=== PATIENT | female | born 1955 | race American Indian/Alaskan Native ===

== ENCOUNTER 2020-06-15 15:00 | Emergency (ER) | payer MEDICARE, MEDICAID, OTHER ==
[~2020-06-15] VITALS: Ht 157.5 cm; Wt 68.0 kg
--- OUTSIDE RECORDS SUMMARY | ~2020-06-15 | XMS | Encounter Summary ---
Demographics + + + | Address | [address] | | | [place] [address] | + + + | Home Phone | | + + + | Preferred Language | Unknown | + + + | Marital Status | Single | + + + | Denominational Affiliation | CAT | + + + | Race | White | + + + | Ethnic Group | Not or | + + + Author + + + | Organization | Unknown | + + + | Address | Unknown | + + + | Phone | Unavailable | + + + Support + + +---------+ + | Name | Relationship | Address | Phone | + + +---------+ + | Richard Berrios | ECON | Unknown | | + + +---------+ + Care Team Providers + +------+ + | Care Leather Shaver Name | Role | Phone | + +------+ + PCP | Unavailable | + +------+ + Encounter Details +--------+ + + + + | Date | Type | Department | Care Team | Description | +--------+ + + + + | 12/08/ | Transcribed | | Dictation, Other | Transcribed | | 2002 | | | | | +--------+ + + + + Social History + +-------+ +--------+------+ | Tobacco Use | Types | Packs/Day | Years | Date | | | | | Used | | + +-------+ +--------+------+ | Never Assessed | | | | | + +-------+ +--------+------+ + + + | Sex Assigned at | Date Recorded | | | | + + + | Not on file | | + + + documented as of this encounter Progress Notes Interface, Hospital Internship In - 05/24/2006 3:[address] [address] or December 08, 2001 Derrick Serrano M.D. [facility] [address] [place] [address] RE: LORENA BERRIOS MR #: [id number] Dear Dr. Serrano: It is a pleasure to see Lorena Berrios in the Neurosurgery Clinic today. As you are well aware, this 46-year-old woman comes in with a chief complaint of severe back pain and bilateral leg aching pain. The patient's problem started insidiously many years ago. She dates it back to approximately 1996. Ever since that time, she has had aching to sharp back pain, severe muscle spasm, and limited range of motion. In the more recent years, she has noted pain that goes into the buttocks bilaterally down the legs to the knees. It did not go below the knee. The pain in the back is made worse by any movement, and it really never gets better. The pain in the legs is exacerbated by standing and walking, and if she changes position, it gets slightly better but then will start getting to be bad. She has no weakness, no numbness, and no bowel or bladder problems. She has previously been treated with some physical therapy. She also has had some medications at various times for this. She has recently had an MRI, and we were asked to evaluate her for surgical intervention. Past medical history is significant for cholecystectomy and section. She also has high blood pressure and diabetes. She has had some abdominal pain and some migraine headaches. The family history is positive for cancer, diabetes, heart disease, high blood pressure, mental illness, tuberculosis, arthritis, and migraine headaches. Social history, she is a housewife, she smokes, and she does not drink. SHE IS ALLERGIC TO CODEINE, HYDROCODONE, MORPHINE, AND CELEBREX. She takes ( ), lisinopril, ( ), ( ), lovastatin, citalopram, doxepin, diazepam, and Neurontin. Her review of system shows high blood pressure. No angina or other problems. She has abdominal pain. She has no asthma, shortness of breath, emphysema, cancer, skin disease, anemia, renal failure, strokes, blackouts, epilepsy, or major problem with her back. On examination, she was a very pleasant woman who gave a concise history, and cooperative fully with the examination. She did appear to be in pain. She was extremely well nourished and somewhat overweight. Her blood pressure 142/80, pulse of 100, and respiratory rate of 12. Her gait appeared normal but slow. Her cerebellar testing, upper and lower extremities, were normal. Musculoskeletal examination revealed some limited range of motion of the spine particularly in extension. Diffuse tenderness and paraspinal spasm. Severe tenderness in the subtrochanteric areas bilaterally. Manipulation of the hip produce subtrochanteric pain. No anterior thigh pain. No straight leg raising or reverse straight leg raising. She had diffuse tenderness of the tensor fascia greg areas also. Pulses were diminished in the lower extremities. Motor strength in the upper and lower extremities 5-/5 with normal tone. Sensory examination was normal for pinprick and position sense. The reflexes are +1 and symmetrical in the biceps, triceps, and knees jerks, absent ankle jerks, and the toes are downgoing. I reviewed an MRI scan that was performed this year. This shows some stenosis at the L3-L4, L4-L5, and L5-S1 levels. This patient has 2 basic problems; first, severe back pain that has been there for many many years and probably some neurogenic claudication in the lower extremities. Although because of the severe subtrochanteric bursitis, it is very hard to tell the two apart. At this point, given her primary problem with her back pain, I do not think any surgical intervention will help her. At this point, before one would consider any surgery she needs aggressive physical therapy, she needs significant weight loss, she needs to be treated with anti-inflammatories, and injections in the subtrochanteric area may help. I think before anyone would entertain any surgical intervention one would also try to do epidural steroids on her to see if this is helpful. I appreciate the chance to see your patient. Thank you for sending her here. Yours sincerely, Roddy Sanches M.D. [facility] / [id number] / [id number] / [id number] / [id number] signed by Interface, Hospital Internship In at 05/24/2006 3:12 AM PDTdoc umented in this encounter Plan of Treatment Not on filedocumented as of this encounter Visit Diagnoses Not on filedocumented in this encounter"
--- OUTSIDE RECORDS SUMMARY | ~2020-06-15 | XMS | Encounter Summary ---
Demographics + + + | Address | [address] | | | [place] [address] | + + + | Home Phone | | + + + | Preferred Language | Unknown | + + + | Marital Status | Single | + + + | Sabianism Affiliation | CAT | + + + | Race | White | + + + | Ethnic Group | Not or | + + + Author + + + | Author | [facility] | + + + | Organization | [facility] | + + + | Address | Unknown | + + + | Phone | Unavailable | + + + Support + + +---------+ + | Name | Relationship | Address | Phone | + + +---------+ + | Richard Hall | ECON | Unknown | | + + +---------+ + Care Team Providers + +------+ + | Care Dietetics Teacher Name | Role | Phone | + +------+ + PCP | Unavailable | + +------+ + Encounter Details +--------+ + + + + | Date | Type | Department | Care Team | Description | +--------+ + + + + | 07/12/ | DELETED | Preoperative | Consult, | ANESTHESIA/SEDATION | | 2003 | TRANSCRIPTI | Medicine Clinic at | Anesthesia [address] | | | | ON | [facility] 4th Floor [address] [facility] | | | | | [address] [place], [place] | | | | | Mailcode: [facility] | [id number] | | | | | [facility] | | | | | | and Healing, | | | | | | Building [address]4th Floor | | | | | | [place], [place] | | | | | | [address] | | | | | | [phone] | | | +--------+ + + + [...] + + documented as of this encounter Plan of Treatment Not on filedocumented as of this encounter Procedures + +--------+ + + + | Procedure Name | Priori | Date/Time | Associated Diagnosis | Comments | | | ty | | | | + +--------+ + + + | ANESTHESIA/SEDATION | | 07/12/2004 | | Results for this | | | | 8:45 AM | | procedure are in the | | | | PDT | | results section. | + +--------+ + + + documented in this encounter Visit Diagnoses Not on filedocumented in this encounter"
--- OUTSIDE RECORDS SUMMARY | ~2020-06-15 | XMS | Encounter Summary ---
Demographics + + + | Address | [address] | | | [place] [address] | + + + | Home Phone | | + + + | Preferred Language | Unknown | + + + | Marital Status | Single | + + + | Muslim Affiliation | CAT | + + + | Race | White | + + + | Ethnic Group | Not or | + + + Author + + + | Author | [facility] | + + + | Organization | [facility] | + + + | Address | Unknown | + + + | Phone | Unavailable | + + + Support + + +---------+ + | Name | Relationship | Address | Phone | + + +---------+ + | Richard Hall | ECON | Unknown | | + + +---------+ + Care Team Providers + +------+ + | Care Top Carrier Name | Role | Phone | + +------+ + PCP | Unavailable | + +------+ + Reason for Visit +--------+--------+ + | Reason | Onset | Comments | | | Date | | +--------+--------+ + | Other | 04/07/ | chart update | | | 2015 | | +--------+--------+ + Encounter Details +--------+ + + + + | Date | Type | Department | Care Team | Description | +--------+ + + + + | 04/07/ | Telephone | [facility] | Bhavani Julian MD | Other (chart update) | | 2015 | | Medical Clinic | [address] | | | | | Internal Medicine | [place] | | | | | [address] | [address] | | | | | [place], [place] | [phone] | | | | | [address] | | | | | | [phone] | | | +--------+ + + + [...]
--- OUTSIDE RECORDS SUMMARY | ~2020-06-15 | XMS | Encounter Summary ---
Demographics + + + | Address | [address] | | | [place] [address] | + + + | Home Phone | | + + + | Preferred Language | Unknown | + + + | Marital Status | Single | + + + | Nondenominational Affiliation | CAT | + + + [...] Team Providers + +------+ + | Care Silver Plater Name | Role | Phone | + +------+ + PCP | Unavailable | + +------+ + Encounter Details +--------+ + + + + | Date | Type | Department | Care Team | Description | +--------+ + + + + | 07/11/ | Orders Only | | Record, Operation | | | 2004 | | | | | +--------+ + [...] + + documented as of this encounter Procedure Notes Interface, Occupational Therapy Teacher In - 09/02/2005 7:32 PM [facility] [id number] YASH Guevara Date: 07/11/2004 Attending Surgeon: Geraldine Holt M.D., Ph.D. Training Program Assistant(s): Israel Roberson M.D. Theodore Brandon M.D. Preoperative Diagnosis(es): Lumbar stenosis. Postoperative Diagnosis(es): Lumbar stenosis. Procedures Performed: 1. L4-5 laminectomy with bilateral foraminotomies. 2. Intraoperative fluoroscopy with interpretation approximately 10 seconds. Anesthesia: General endotracheal anesthesia plus local anesthetics. Complications: None. Specimens: None. Indications: The patient is a 49-year-old female with history of back and buttock pain who has now new progressive right lower extremity pain and claudication. MRI shows severe lumbar stenosis at L4-5, especially in the lateral recesses and foramen, due to ligamentous hypertrophy and circumferential lumbar disk bulge. Findings: L4-5 laminectomy was performed with bilateral foraminotomies. Good decompression of the nerve roots and lateral recesses were performed. Procedure: The patient was brought to the Operating Room. General endotracheal anesthesia was induced. The patient was rolled into prone position on a Naveen table. Fluoroscopy was brought in, and the level of L4-5 was localized. Back was prepped and draped in sterile fashion. A midline incision was made and carried down in the midline, and the L4-5 spinous processes and laminae were exposed. Fluoroscopy again confirmed that these indeed were the right levels, so a high-speed drill was used to the cut the lamina on either side, and then these were removed with a rongeur. Once this was done, the laminae were removed, and then the lateral recess and foramen were decompressed with the Kerrison punch. [place] tool was used to make sure that decompression was adequately good. The nerve roots were loose along the lateral recess and foramen bilaterally. The wound was copiously irrigated, and the fascia was closed with 0 interrupted Vicryl; 3-0 interrupted Vicryl was used for subcutaneous layer; and a running 4-0 Rapide was used for skin. Bacitracin and sterile dressings were placed. The patient was brought back into supine position, awakened, extubated, and taken to the Recovery Room in good condition. Israel Roberson M.D. Gearldine Holt M.D., Ph.D. / [id number] / [id number] / [id number] / [id number] documented i n this encounter Plan of Treatment Not on filedocumented as of this encounter Procedures + +--------+ + + + | Procedure Name | Priori | Date/Time | Associated Diagnosis | Comments | | | ty | | | | + +--------+ + + + | OPERATION RECORD | | 07/11/2004 | | Results for this | | | | | | procedure are in the | | | | | | results section. | + +--------+ + + + documented in this encounter Results OPERATION RECORD (07/11/2004) + + | Transcriptions | + + | Interface, Occupational Therapy Teacher In - 09/02/2005 7:32 PM PST | | [id number] | | [id number] YASH Guevara | | | | Date: 07/11/2004 | | | | Attending Surgeon: Geraldine Holt M.D., Ph.D. | | | | Training Program Assistant(s): Israel Roberson M.D. | | Theodore Brandon M.D. | | | | Preoperative Diagnosis(es): | | Lumbar stenosis. | | | | Postoperative Diagnosis(es): | | Lumbar stenosis. | | | | Procedures Performed: | | 1. L4-5 laminectomy with bilateral foraminotomies. | | 2. Intraoperative fluoroscopy with interpretation approximately 10 | | seconds. | | | | | | Anesthesia: | | General endotracheal anesthesia plus local anesthetics. | | | | Complications: | | None. | | | | Specimens: | | None. | | | | Indications: | | The patient is a 49-year-old female with history of back and buttock pain | | who has now new progressive right lower extremity pain and claudication. | | MRI shows severe lumbar stenosis at L4-5, especially in the lateral | | recesses and foramen, due to ligamentous hypertrophy and circumferential | | lumbar disk bulge. | | | | Findings: | | L4-5 laminectomy was performed with bilateral foraminotomies. Good | | decompression of the nerve roots and lateral recesses were performed. | | | | Procedure: | | The patient was brought to the Operating Room. General endotracheal | | anesthesia was induced. The patient was rolled into prone position on a | | Naveen table. Fluoroscopy was brought in, and the level of L4-5 was | | localized. Back was prepped and draped in sterile fashion. A midline | | incision was made and carried down in the midline, and the L4-5 spinous | | processes and laminae were exposed. Fluoroscopy again confirmed that these | | indeed were the right levels, so a high-speed drill was used to the cut the | | lamina on either side, and then these were removed with a rongeur. Once | | this was done, the laminae were removed, and then the lateral recess and | | foramen were decompressed with the Kerrison punch. [place] tool was used | | to make sure that decompression was adequately good. The nerve roots were | | loose along the lateral recess and foramen bilaterally. The wound was | | copiously irrigated, and the fascia was closed with 0 interrupted Vicryl; | | 3-0 interrupted Vicryl was used for subcutaneous layer; and a running 4-0 | | Rapide was used for skin. Bacitracin and sterile dressings were placed. | | The patient was brought back into supine position, awakened, extubated, and | | taken to the Recovery Room in good condition. | | | | | | | | | | Israel Roberson M.D. | | | | | | | | Geraldine Holt M.D., Ph.D. | | | | / | | [id number] / [id number] / [id number] / [id number] | | | | | + + documented in this encounter Visit Diagnoses Not on filedocumented in this encounter"
--- OUTSIDE RECORDS SUMMARY | ~2020-06-15 | XMS | Encounter Summary ---
Demographics + + + | Address | [address] | | | [place] [address] | + + + | Home Phone | | + + + | Preferred Language | Unknown | + + + | Marital Status | Single | + + + | Presybeterian Affiliation | CAT | + + + | Race | White | + + + | Ethnic Group | Not or | + + + Author + + + | Author | [facility] | + + + | Organization | [facility] | + + + | Address | Unknown | + + + | Phone | Unavailable | + + + Support + + +---------+ + | Name | Relationship | Address | Phone | + + +---------+ + | Richard Hall | ECON | Unknown | | + + +---------+ + Care Team Providers + +------+ + | Care Snack Bar Attendant Name | Role | Phone | + +------+ + PCP | Unavailable | + +------+ + Encounter Details +--------+ + + + + | Date | Type | Department | Care Team | Description | +--------+ + + + + | 10/06/ | Office | [facility] | Clinic, | Progress Note | | 2005 | Visit-Trans | | Rheumatology | | | | cribed | | | | +--------+ + + [...] as of this encounter Progress Notes Interface, Dray Driver In - 04/12/2005 12:16 AM PDT [id number] 10/06/2004 10/06/2004 [id number] YASH Guevara Clinic Date: 10/06/2004 Clinic: Rheumatology Clinic HPI: The patient is a 49-year-old female who is referred to us by her neurosurgeon for concern for rheumatoid arthritis. The patient reports multiple areas of joint pain and all over body pain for the last 15-20 years. Currently her right hip is giving her the most discomfort and she points to her lateral right hip. She was having significant lower back pain with radiation down her leg but this has mostly resolved since an L4-5 laminectomy that was done a couple of months ago. She also complains of pain in her wrist and small joints of her hand including MCPs, DIPs and carpometacarpal joint, the first one bilaterally. She describes her hand joints becoming swollen. She also describes morning stiffness that lasts about three hours. She also complains of pain in her DIPs in her feet. Her hand and feet pain is constant and occurs at rest as well as at exertion. She also complains of medial knee pain bilaterally, which is worse with exertion. She also complains of bilateral elbow pain. She mentions that she wonders if she fractured her left ankle as this has been giving her a lot of pain lately. She is able to weight bear on her ankle. She denies any of her joints becoming red or warm. She denies any rashes. She denies any history of kidney problems, pleural effusions or pericarditis. Other Past Medical History: 1. Spinal stenosis status post L4-5 laminectomy. 2. Hypercholesterolemia. 3. Depression. 4. GERD. 5. The patient reports a history of peptic ulcer disease. Medications: 1. Ambien 10 mg, p.o. q.h.s. 2. Lipitor 40 mg, p.o. q.h.s. 3. Effexor XR 150 mg, p.o. daily. 4. Metoclopramide 10 mg, p.o. four times a day. 5. Albuterol inhaler p.r.n. ALLERGIES: ULTRAM, MORPHINE, CODEINE, VICODIN, CELEBREX, HYDROCODONE, DURAGESIC PATCH, MS CONTIN and DARVOCET. All of these medications cause itching. Family History: The patient reports a family history of rheumatoid arthritis in her sister. Social History: The patient is single. She smokes marijuana recreationally. No history of IV drug use. She is currently disabled secondary to her chronic pain. Physical Exam: Vital Signs: Blood pressure 134/70. Pulse 71. Weight 198.7. Musculoskeletal: The patient does seem to have some puffiness around her wrists bilaterally. No swelling in the small joints of her hands. No erythema in any of her hand joints. She has full range of motion of her hand joints. She does have tenderness in her wrists, her CMC, her MCP, PIP and DIPs. The patient has several [place] nodes on the DIP joints. She has some swelling over her medial area of bilateral knees. She has full range of motion of her knees. She has no erythema of her knees. She has no effusions. Ankles have full range of motion. The small joints of her feet currently are not tender. She has full range of motion. Hips have full range of motion without any discomfort. She does have tenderness over her right trochanteric bursa. She has 12 tender points of fibromyalgia. Heart: Regular rate and rhythm without murmur. Lungs: Clear. Labs: She has a creatinine from June 2004 which is 0.6. She has a CBC from June 2004 that showed a white count of 10.7, hematocrit 41.8 and platelet count of 325,000. She has an MRI from 2003 that shows severe spinal stenosis. Assessment and Plan: 1. Trochanteric bursitis. Given her discomfort over her lateral right hip area with tenderness over the trochanteric bursa the patient has trochanteric bursitis. Given her possible history of peptic ulcer disease we will not recommend NSAIDs at this time. We have recommended warm compresses to this area. She is about to start physical therapy with [facility] and we have recommended that she do this and ask specifically about exercises directed towards improving symptoms of trochanteric bursitis. The patient is not interested in a steroid injection at this time. 2. Anserine bursitis of her bilateral knees. Once again we recommended that she place warm compresses to her anserine bursa bilaterally. Given her history of peptic ulcer disease we will hold off on the ibuprofen at this time. The patient is not interested in a steroid injection. 3. Osteoarthritis. She probably has some osteoarthritis of her knees and her DIPs of her hands. 4. Fibromyalgia. Given the patient's complaints of all over body pain and her 12 tender points of fibromyalgia the patient has a diagnosis of fibromyalgia. Of note, she also complains of difficulty sleeping and some depression. She is already currently on a sleep aid as well as an antidepressant. She will be starting physical therapy soon. We recommend no further intervention at this time. 5. Question of rheumatoid arthritis. Currently the patient has no objective evidence of synovitis on physical exam. However, given her complaints of joint swelling and stiffness in the morning we will obtain hand films to look for any evidence of rheumatoid arthritis. We will also obtain a rheumatoid factor. 6. Question of sacroiliitis. An outside neurosurgeon that she saw recently mentioned that she may have sacroiliitis. Her MRI did not show any evidence of this. Given that she has not had pelvic films in the past we will go ahead and get some of these to evaluate her sacroiliac joints. However, given that she is not complaining of significant back stiffness at this time we have low suspicion for sacroiliitis at this point. 7. The patient will return to the clinic in two weeks. Chiquita DervanaLtasha M.D. CD/x54 P [id number] cc: FAX TO KATY SORTO MD [phone] documented i n this encounter Plan of Treatment Not on filedocumented as of this encounter Visit Diagnoses Not on filedocumented in this encounter"
--- OUTSIDE RECORDS SUMMARY | ~2020-06-15 | XMS | Encounter Summary ---
Demographics + + + | Address | [address] | | | [place] [address] | + + + | Home Phone | | + + + | Preferred Language | Unknown | + + + | Marital Status | Single | + + + | Restoration Affiliation | CAT | + + + | Race | White | + + + | Ethnic Group | Not or | + + + Author + + + | Author | [facility] | + + + | Organization | [facility] | + + + | Address | Unknown | + + + | Phone | Unavailable | + + + Support + + +---------+ + | Name | Relationship | Address | Phone | + + +---------+ + | Richard Hall | ECON | Unknown | | + + +---------+ + Care Team Providers + +------+ + | Care Automotive Technology Instructor Name | Role | Phone | + +------+ + PCP | Unavailable | + +------+ + Encounter Details +--------+ + + + + | Date | Type | Department | Care Team | Description | +--------+ + + + + | 04/23/ | Results | Neurosurgery [address] | Lucrecia Holt, | | | 2003 | Only | [address] | [address] | | | | | Nick Mailcode:OP14B | [address] | | | | | [address] | [place] [address] | | | | | [place], [place] | [phone] | | | | | [address] | | | | | | [phone] | | | +--------+ + + + [...] | + +--------+ + + + | CBC ONLY | Routin | 07/12/2004 | | Results for this | | | e | 8:56 AM | | procedure are in the | | | | PDT | | results section. | + +--------+ + + + | COMPLETE METABOLIC | Routin | 07/08/2004 | | Results for this | | SET | e | 2:50 PM | | procedure are in the | | (NA,K,CL,CO2,BUN,CRE | | PDT | | results section. | | AT,GLUC,CA,AST,ALT,B | | | | | | JOLIE TOTAL,ALK | | | | | | PHOS,ALB,PROT TOTAL) | | | | | + +--------+ + + + | CBC ONLY | Routin | 07/08/2004 | | Results for this | | | e | 2:50 PM | | procedure are in the | | | | PDT | | results section. | + +--------+ + + + | TYPE AND SCREEN | Routin | 07/08/2004 | | Results for this | | | e | 2:50 PM | | procedure are in the | | | | PDT | | results section. | + +--------+ + + + | X-RAY SPINE | Routin | 04/23/2004 | | Results for this | | LUMBOSACRAL 2 VIEWS | e | 9:31 AM | | procedure are in the | | | | PDT | | results section. | + +--------+ + + + documented in this encounter Results CBC ONLY WITH PLATELET (07/12/2004 8:56 AM PDT) + + + + + + | Component | Value | Ref Range | Performed | Pathologist | | | | | At | Signature | + + + + + + | WHITE CELL | 11.2 (H) | 4.4 - 11.0 K/cu | [facility] | | | COUNT | | mm | DEPARTMENT | | | | | | OF | | | | | | PATHOLOGY | | + + + + + + | RED CELL | 3.80 | 3.65 - 5.10 | [facility] | | | COUNT | | M/cu mm | DEPARTMENT | | | | | | OF | | | | | | PATHOLOGY | | + + + + + + | HEMOGLOBIN | 11.2 (L) | 11.4 - 15.0 | [facility] | | | | | g/dL | DEPARTMENT | | | | | | OF | | | | | | PATHOLOGY | | + + + + + + | HEMATOCRIT | 33.1 | 33.0 - 44.6 % | [facility] | | | | | | DEPARTMENT | | | | | | OF | | | | | | PATHOLOGY | | + + + + + + | MCV | 87.1 | 80.0 - 96.0 fL | [facility] | | | | | | DEPARTMENT | | | | | | OF | | | | | | PATHOLOGY | | + + + + + + | MCH | 29.5 | 29.0 - 32.0 pg | [facility] | | | | | | DEPARTMENT | | | | | | OF | | | | | | PATHOLOGY | | + + + + + + | MCHC | 33.8 | 33.4 - 35.5 | [facility] | | | | | g/dL | DEPARTMENT | | | | | | OF | | | | | | PATHOLOGY | | + + + + + + | RDW | 13.7 | 11.5 - 15.0 % | [facility] | | | | | | DEPARTMENT | | | | | | OF | | | | | | PATHOLOGY | | + + + + + + | PLATELET | 282 | 150 - 400 K/cu | [facility] | | | COUNT | | mm | DEPARTMENT | | | | | | OF | | | | | | PATHOLOGY | | + + + + + + | MPV | 6.8 (L) | 7.4 - 10.4 fL | [facility] | | | | | | DEPARTMENT | | | | | | OF | | | | | | PATHOLOGY | | + + + + + + + + | Specimen | + + | | + + + + + + + | Performing | Address | City/State/Zipcode | Phone Number | | Organization | | | | + + + + + | [facility] | [address] | [place] [address] | | | PATHOLOGY | [address] | | | + + + + + | [facility] | [address] | [place] [address] | | | PATHOLOGY | [address] | | | + + + + + TYPE AND SCREEN (07/08/2004 2:50 PM PDT) + +-------+ + + + | Component | Value | Ref Range | Performed | Pathologist | | | | | At | Signature | + +-------+ + + + | ABO GROUP | O | | [facility] | | | | | | DEPARTMENT | | | | | | OF | | | | | | PATHOLOGY | | + +-------+ + + + | RH TYPE | POS | | [facility] | | | | | | DEPARTMENT | | | | | | OF | | | | | | PATHOLOGY | | + +-------+ + + + | ANTIBODY | NEG | | [facility] | | | SCREEN | | | DEPARTMENT | | | | | | OF | | | | | | PATHOLOGY | | + +-------+ + + + + + | Specimen | + + | | + + + + + | Narrative | Performed At | + + + | SPEC. BAM 07/12/04 0700 | [facility] | | | DEPARTMENT OF | | | PATHOLOGY | + + + + + + + + | Performing | Address | City/State/Zipcode | Phone Number | | Organization | | | | + + + + + | [facility] | [address] | [place] [address] | | | PATHOLOGY | [address] | | | + + + + + | [facility] | [address] | [place] [address] | | | PATHOLOGY | [address] | | | + + + + + CBC ONLY WITH PLATELET (07/08/2004 2:50 PM PDT) + +-------+ + + + | Component | Value | Ref Range | Performed | Pathologist | | | | | At | Signature | + +-------+ + + + | WHITE CELL | 10.7 | 4.4 - 11.0 K/cu | [facility] | | | COUNT | | mm | DEPARTMENT | | | | | | OF | | | | | | PATHOLOGY | | + +-------+ + + + | RED CELL | 4.80 | 3.65 - 5.10 | [facility] | | | COUNT | | M/cu mm | DEPARTMENT | | | | | | OF | | | | | | PATHOLOGY | | + +-------+ + + + | HEMOGLOBIN | 14.1 | 11.4 - 15.0 | [facility] | | | | | g/dL | DEPARTMENT | | | | | | OF | | | | | | PATHOLOGY | | + +-------+ + + + | HEMATOCRIT | 41.8 | 33.0 - 44.6 % | [facility] | | | | | | DEPARTMENT | | | | | | OF | | | | | | PATHOLOGY | | + +-------+ + + + | MCV | 87.1 | 80.0 - 96.0 fL | [facility] | | | | | | DEPARTMENT | | | | | | OF | | | | | | PATHOLOGY | | + +-------+ + + + | MCH | 29.4 | 29.0 - 32.0 pg | [facility] | | | | | | DEPARTMENT | | | | | | OF | | | | | | PATHOLOGY | | + +-------+ + + + | MCHC | 33.7 | 33.4 - 35.5 | [facility] | | | | | g/dL | DEPARTMENT | | | | | | OF | | | | | | PATHOLOGY | | + +-------+ + + + | RDW | 13.4 | 11.5 - 15.0 % | [facility] | | | | | | DEPARTMENT | | | | | | OF | | | | | | PATHOLOGY | | + +-------+ + + + | PLATELET | 325 | 150 - 400 K/cu | [facility] | | | COUNT | | mm | DEPARTMENT | | | | | | OF | | | | | | PATHOLOGY | | + +-------+ + + + | MPV | 7.7 | 7.4 - 10.4 fL | [facility] | | | | | | DEPARTMENT | | | | | | OF | | | | | | PATHOLOGY | | + +-------+ + + + + + | Specimen | + + | | + + + + + + + | Performing | Address | City/State/Zipcode | Phone Number | | Organization | | | | + + + + + | [facility] | [address] | [place] [address] | | | PATHOLOGY | [address] | | | + + + + + | [facility] | [facility] | [place] [address] | | | PATHOLOGY | [address] | | | + + + + + COMP METABOLIC SET (07/08/2004 2:50 PM PDT) + +---------+ + + + | Component | Value | Ref Range | Performed | Pathologist | | | | | At | Signature | + +---------+ + + + | GLUCOSE, | 79 | 65 - 110 mg/dL | [facility] | | | PLASMA | | | DEPARTMENT | | | (LAB) | | | OF | | | | | | PATHOLOGY | | + +---------+ + + + | BUN, PLASMA | 5 (L) | 6 - 20 mg/dL | [facility] | | | (LAB) | | | DEPARTMENT | | | | | | OF | | | | | | PATHOLOGY | | + +---------+ + + + | CREATININE | 0.6 | 0.6 - 1.1 mg/dL | [facility] | | | PLASMA | | | DEPARTMENT | | | (LAB) | | | OF | | | | | | PATHOLOGY | | + +---------+ + + + | TOTAL | 7.0 | 6.1 - 7.9 g/dL | [facility] | | | PROTEIN, | | | DEPARTMENT | | | PLASMA | | | OF | | | (LAB) | | | PATHOLOGY | | + +---------+ + + + | ALBUMIN, | 3.8 | 3.5 - 4.7 g/dL | [facility] | | | PLASMA | | | DEPARTMENT | | | (LAB) | | | OF | | | | | | PATHOLOGY | | + +---------+ + + + | CALCIUM, | 9.0 | 8.5 - 10.5 | [facility] | | | PLASMA | | mg/dL | DEPARTMENT | | | (LAB) | | | OF | | | | | | PATHOLOGY | | + +---------+ + + + | BILIRUBIN | 0.3 | 0.3 - 1.2 mg/dL | [facility] | | | TOTAL | | | DEPARTMENT | | | | | | OF | | | | | | PATHOLOGY | | + +---------+ + + + | ALK PHOS | 101 (H) | 42 - 98 U/L | [facility] | | | | | | DEPARTMENT | | | | | | OF | | | | | | PATHOLOGY | | + +---------+ + + + | AST(SGOT) | 17 | 15 - 41 U/L | [facility] | | | | | | DEPARTMENT | | | | | | OF | | | | | | PATHOLOGY | | + +---------+ + + + | SODIUM, | 142 | 136 - 145 | [facility] | | | PLASMA | | mmol/L | DEPARTMENT | | | (LAB) | | | OF | | | | | | PATHOLOGY | | + +---------+ + + + | POTASSIUM, | 3.8 | 3.5 - 5.1 | [facility] | | | PLASMA | | mmol/L | DEPARTMENT | | | (LAB) | | | OF | | | | | | PATHOLOGY | | + +---------+ + + + | CHLORIDE, | 106 | 98 - 107 mmol/L | [facility] | | | PLASMA | | | DEPARTMENT | | | (LAB) | | | OF | | | | | | PATHOLOGY | | + +---------+ + + + | TOTAL CO2, | 26 | 23 - 29 mmol/L | [facility] | | | PLASMA | | | DEPARTMENT | | | (LAB) | | | OF | | | | | | PATHOLOGY | | + +---------+ + + + | ALT (SGPT) | 13 | 13 - 48 U/L | [facility] | | | | | | DEPARTMENT | | | | | | OF | | | | | | PATHOLOGY | | + +---------+ + + + + + | Specimen | + + | | + + + + + + + | Performing | Address | City/State/Zipcode | Phone Number | | Organization | | | | + + + + + | [facility] | [address] | [place] [address] | | | PATHOLOGY | [address] | | | + + + + + | [facility] DEPARTMENT OF | [address] | [place] [address] | | | PATHOLOGY | [address] | | | + + + + + SPINE LUMBOSACRAL 2 VIEWS (04/23/2004 9:31 AM PDT) + + + + + + | Component | Value | Ref Range | Performed | Pathologist | | | | | At | Signature | + + + + + + | SPINE | Radiologist 1: MARK | | | | | LUMBOSACRAL | Latasha VELEZ-Radiologist | | | | | 2 VIEWS | 2: ROSIE FLORES, | | | | | | M.D.EXAM: Standing | | | | | | lateral | | | | | | flexion/extension views | | | | | | of the lumbarspine. | | | | | | COMPARISON: None | | | | | | FINDINGS: Vertebral | | | | | | body heights are | | | | | | maintained. There is | | | | | | discspace narrowing with | | | | | | endplate sclerosis at | | | | | | L3-4, L4-5, and | | | | | | L5-S1.Marked facet | | | | | | arthropathy is present | | | | | | at L4 through S1. | | | | | | There is gradeone | | | | | | degenerative | | | | | | spondylolisthesis of L4 | | | | | | on L5 that does not | | | | | | changethrough the | | | | | | flexion/extension views. | | | | | | The remainder of the | | | | | | lumbarvertebral bodies | | | | | | are in normal alignment. | | | | | | There is limited | | | | | | range ofmotion in the | | | | | | lumbar spine through | | | | | | flexion/extension views | | | | | | with noevidence of | | | | | | instability. IMPRESSION: | | | | | | 1. Degenerative disc | | | | | | disease at L3-4, L4-5, | | | | | | and L5-S1. 2. Marked | | | | | | facet arthropathy at L4 | | | | | | through S1 3. Grade I | | | | | | degenerative | | | | | | spondylolisthesis of L4 | | | | | | on L5 with nochange in | | | | | | alignment through | | | | | | flexion/extension views. | | | | | | 4. Limited range of | | | | | | motion. | | | | + + + + + + + + | Specimen | + + | | + + + +---------+ + + | Performing | Address | City/State/Zipcode | Phone Number | | Organization | | | | + +---------+ + + | [facility] DEPARTMENT OF | | | | | RADIOLOGY | | | | + +---------+ + + documented in this encounter Visit Diagnoses Not on filedocumented in this encounter"
--- OUTSIDE RECORDS SUMMARY | ~2020-06-15 | XMS | Encounter Summary ---
Demographics + + + | Address | [address] | | | [place] [address] | + + + | Home Phone | | + + + | Preferred Language | Unknown | + + + | Marital Status | Single | + + + | Restorationism Affiliation | CAT | + + + | Race | White | + + + | Ethnic Group | Not or | + + + Author + + + | Author | [facility] | + + + | Organization | [facility] | + + + | Address | Unknown | + + + | Phone | Unavailable | + + + Support + + +---------+ + | Name | Relationship | Address | Phone | + + +---------+ + | Richard Berrios | ECON | Unknown | | + + +---------+ + Care Team Providers + +------+ + | Care Money Market Dealer Name | Role | Phone | + +------+ + | No Pcp Per Patient | PCP | Unavailable | + +------+ + Encounter Details +--------+ + + + + | Date | Type | Department | Care Team | Description | +--------+ + + + + | 04/23/ | Hospital | [facility] | | | | 2016 | Encounter | Sports Medicine & | | | | | | Orthopaedic Surgery | | | | | | [address] | | | | | | [place], [place] | | | | | | [address] | | | | | | [phone] | | | +--------+ + + + + Social History + + + +--------+ + | Tobacco Use | Types | Packs/Day | Years | Date | | | | | Used | | + + + +--------+ + | Former Smoker | Cigarettes | 0.33 | 5 | Quit: 09/13/2015 | + + + +--------+ + + + +---------+ + | Alcohol Use | Drinks/Week | oz/Week | Comments | + + +---------+ + | No | | | | + + +---------+ + + + + | Sex Assigned at | Date Recorded | | | | + + + | Not on file | | + + + documented as of this encounter Medications at Time of Discharge + + + +---------+ + + | Medication | Sig | Dispensed | Refills | Start | End Date | | | | | | Date | | + + + +---------+ + + | naproxen sodium | Take 220 mg by mouth | | 0 | | | | (ALEVE) 220 mg oral | two times daily. | | | | | | tablet | | | | | | + + + +---------+ + + | PROAIR HFA 90 | INHALE 2 PUFFS BY | 8.5 | 3 | // | | | mcg/actuation | MOUTH EVERY 4 TO 6 | Inhaler | | 17 | | | inhalation HFA | HOURS IF NEEDED | | | | | | aerosol inhaler | | | | | | + + + +---------+ + + documented as of this encounter Plan of Treatment Not on filedocumented as of this encounter Procedures + +--------+ + + + | Procedure Name | Priori | Date/Time | Associated Diagnosis | Comments | | | ty | | | | + +--------+ + + + | X-RAY CHEST 2 VIEW | Routin | 04/23/2017 | Mild intermittent | Results for this | | | e | 1:58 PM | asthma without | procedure are in the | | | | PDT | complication Cough | results section. | | | | | present for greater | | | | | | than 3 weeks | | + +--------+ + + + documented in this encounter Results X-RAY CHEST 2 VIEW (04/23/2017 1:58 PM PDT) + + | Specimen | + + | | + + + + + | Narrative | Performed At | + + + | [address] | [facility] | | [place] [address] | DEPARTMENT OF | | [phone] Name: LORENA BERRIOS | RADIOLOGY | | Phys: MONIQUE MAXWELL : 1955 Sex: F | | | CSN: [id number] MR# [id number] Exam Date: | | | 04/23/2017 EXAM: X-RAY CHEST 2 VIEW CLINICAL HISTORY: | | | 62-year-old female with cough, asthma. COMPARISON: None | | | available. TECHNIQUE: PA and lateral films were obtained. | | | FINDINGS: Heart size and pulmonary vessels are normal. Descending | | | aorta is mildly tortuous. There is a small scar along left heart | | | border. Lungs are otherwise clear. No signs of pneumonia, pleural | | | effusion or adenopathy. There are surgical clips in upper abdomen. | | | Mild degenerative changes in spine. IMPRESSION: No active | | | cardiopulmonary changes REPORT SIGNED IN OTHER VENDOR SYSTEM | | | 04/23/2017 Reported by: Miah Brothers MD Electronically | | | signed by: Miah Brothers MD Transcribed Date/Time: 04/23/2017 | | | 14:40 Supervisor Shipfitters: GUILLERMINA | | + + + + + | Procedure Note | + + | Interface, Radiology Results - 04/23/2017 2:45 PM PDT [address] | | [address] [place] [address] | | Name: LORENA BERRIOS Phys: MONIQUE MAXWELL : 1955 | | Sex: F CSN: [id number] MR# [id number] Exam Date: 04/23/2017 EXAM:X-RAY | | CHEST 2 VIEW CLINICAL HISTORY:62-year-old female with cough, asthma. COMPARISON:None | | available. TECHNIQUE:PA and lateral films were obtained. FINDINGS:Heart size and | | pulmonary vessels are normal. Descending aorta ismildly tortuous. There is a small | | scar along left heart border.Lungs are otherwise clear. No signs of pneumonia, pleural | | effusionor adenopathy. There are surgical clips in upper abdomen. Milddegenerative | | changes in spine. IMPRESSION:No active cardiopulmonary changes REPORT SIGNED IN | | OTHER VENDOR SYSTEM 04/23/2017 Reported by: Miah Brothers MD Electronically signed | | by: Miah Brothers MD Transcribed Date/Time: 04/23/2017 14:40Transcriptionist: FLUENCY | | | |X-RAY CHEST 2 VIEW | | | |CLINICAL HISTORY: | |62-year-old female with cough, asthma. | | | |COMPARISON: | |None available. | | | |TECHNIQUE: | |PA and lateral films were obtained. | | | |FINDINGS: | |Heart size and pulmonary vessels are normal. Descending aorta is | |mildly tortuous. There is a small scar along left heart border. | |Lungs are otherwise clear. No signs of pneumonia, pleural effusion | |or adenopathy. There are surgical clips in upper abdomen. Mild | |degenerative changes in spine. | | | |IMPRESSION: | |No active cardiopulmonary changes | | | | | | REPORT SIGNED IN OTHER VENDOR SYSTEM 04/23/2017 | |Reported by: Miah Brothers MD | | | |Electronically signed by: Miah Brothers MD | | | |Transcribed Date/Time: 04/23/2017 14:40 | |Supervisor [employer]fitters: GUILLERMINA | | | | | | | + + + +---------+ + + | Performing | Address | City/[facility] | Phone Number | | Organization | | | | + +---------+ + + | [facility] DEPARTMENT OF | | | | | RADIOLOGY | | | | + +---------+ + + documented in this encounter Visit Diagnoses + + | Diagnosis | + + | Mild intermittent asthma without complication Unspecified asthma | + + | Cough present for greater than 3 weeks | + + documented in this encounter"
--- OUTSIDE RECORDS SUMMARY | ~2020-06-15 | XMS | Encounter Summary ---
Demographics + + + | Address | [address] | | | [place] [address] | + + + | Home Phone | | + + + | Preferred Language | Unknown | + + + | Marital Status | Single | + + + | Yarsanism Affiliation | CAT | + + + | Race | White | + + + | Ethnic Group | Not or | + + + Author + + + | Author | [facility] | + + + | Organization | [facility] | + + + | Address | Unknown | + + + | Phone | Unavailable | + + + Support + + +---------+ + | Name | Relationship | Address | Phone | + + +---------+ + | Richard Hall | ECON | Unknown | | + + +---------+ + Care Team Providers + +------+ + | Care Township Supervisor Name | Role | Phone | + +------+ + | No Pcp Per Patient | PCP | Unavailable | + +------+ + Encounter Details +--------+ + + + + | Date | Type | Department | Care Team | Description | +--------+ + + + + | 04/29/ | [facility] | [facility] | [facility] | | | 2017 | anned | [facility] | [facility] | | | | | Internal Medicine | [address] | | | | | [address] | [place] | | | | | [place] | [address] | | | | | [address] | [phone] | | | | | [phone] | | | +--------+ + + + [...]
--- OUTSIDE RECORDS SUMMARY | ~2020-06-15 | XMS | Encounter Summary ---
Demographics + + + | Address | [address] | | | [place] [address] | + + + | Home Phone | | + + + | Preferred Language | Unknown | + + + | Marital Status | Single | + + + | Pentecostal Affiliation | Unknown | + + + | Race | Unknown | + + + | Ethnic Group | Unknown | + + + Author + + + | Author | [facility] | | | and [place] | + + + | Organization | [facility] | | | and [place] | + + + | Address | Unknown | + + + | Phone | Unavailable | + + + Care Team Providers + +------+ + | Care Wheel Lacer And Truer Name | Role | Phone | + +------+ + PCP | Unavailable | + +------+ + Encounter Details +--------+ + + + + | Date | Type | Department | Care Team | Description | +--------+ + + + + | 08/27/ | [facility] | [facility] | Fransisco Godwin MD | | | 2009 | Encounter | MED CTR XRAY [address] | | | | | [address] | [place] [address] | | | | | [place] [address] | [phone] | | | | | [phone] | | | +--------+ + + + [...]
--- OUTSIDE RECORDS SUMMARY | ~2020-06-15 | XMS | Encounter Summary ---
Demographics + + + | Address | [address] | | | [place] [address] | + + + | Home Phone | | + + + | Preferred Language | Unknown | + + + | Marital Status | Single | + + + | Spiritism Affiliation | CAT | + + + | Race | White | + + + | Ethnic Group | Not or | + + + Author + + + | Author | [facility] | + + + | Organization | [facility] | + + + | Address | Unknown | + + + | Phone | Unavailable | + + + Support + + +---------+ + | Name | Relationship | Address | Phone | + + +---------+ + | Richard Hall | ECON | Unknown | | + + +---------+ + Care Team Providers + +------+ + | Care Disability Examiner Name | Role | Phone | + +------+ + PCP | Unavailable | + +------+ + Encounter Details +--------+ + + + + | Date | Type | Department | Care Team | Description | +--------+ + + + + | 08/13/ | Office | [facility] | Clinic, | Progress Note | | 2003 | Visit-Trans | SURGERY | Neurosurgery | | | | cribed | | [...] as of this encounter Progress Notes Interface, Superintendent Menagerie In - 04/12/2005 8:53 AM PDT [id number] [facility] Date: 08/13/2004 Clinic: Neurosurgery Subjective: Mrs. Hall is a 49-year-old woman who is approximately 1 month status post L4-5 laminectomy and bilateral foraminotomies for progressive back, buttock, and lower extremity pain, and claudication just listed on the right lower extremity per chart notes and in the left lower extremity per the patient. She states that she is doing much much better postoperatively with little and no back or leg pain. She also denies any fevers, chills, nausea, vomiting, or diarrhea. She is eating well when she has food; however, she states that at the end of the month it is always very difficult when she runs out of food stamps and has to borrow food from family members. She is eating mostly simple grains and light diet but somehow has still gained 10 pounds. She is still taking her butorphanol nasal spray every 2 hours but is working with her primary care provider to wean from this medication and on to Darvocet. Physical Examination General: This is a normally obese woman in no acute distress. Neurologic: Awake, alert, and oriented with cranial nerves 2 though 12 grossly intact and symmetric. Motor examination of the lower extremities reveals 5/5 strength. The hip flexors, knee flexor, and extensors, ankle, plantar, dorsiflexors, and extensor hallucis longus muscle groups bilaterally. She has no sensory deficit. She has 2+ DTRs at the knees bilaterally. No Achilles tendon reflexes. She has no clonus and downgoing toes bilaterally. Her gait is within normal limits. The incision is well healed without erythema or discharge. Assessment and Plan: Status post L4-5 laminectomy and bilateral foraminotomies on July 11, 2004. She is well recovered from this surgery and is neurologically intact. I discussed with her continued weaning from these pain medications, and that she should try to wean from all of these pain medications at this point. I also advised her that nutrition is extremely important to the healing process, and that she should not need any further treatment at this time. I advised her if she develops new symptoms, then she is certainly welcome to follow up in the Neurosurgery Clinic as needed. Otherwise, she should follow up with her primary care provider for ongoing medical management. Theodore Brandon M.D. KIN / DARRYL [id number] / [id number] / [id number] / [id number] documented i n this encounter Plan of Treatment Not on filedocumented as of this encounter Visit Diagnoses Not on filedocumented in this encounter"
--- OUTSIDE RECORDS SUMMARY | ~2020-06-15 | XMS | Encounter Summary ---
Demographics + + + | Address | [address] | | | [place] [address] | + + + | Home Phone | | + + + | Preferred Language | Unknown | + + + | Marital Status | Single | + + + | Mandaen Affiliation | CAT | + + + | Race | White | + + + | Ethnic Group | Not or | + + + Author + + + | Author | [facility] | + + + | Organization | [facility] | + + + | Address | Unknown | + + + | Phone | Unavailable | + + + Support + + +---------+ + | Name | Relationship | Address | Phone | + + +---------+ + | Richard Hall | ECON | Unknown | | + + +---------+ + Care Team Providers + +------+ + | Care Ring Barker Operator Name | Role | Phone | + +------+ + PCP | Unavailable | + +------+ + Encounter Details +--------+ + + + + | Date | Type | Department | Care Team | Description | +--------+ + + + + | 04/06/ | Document-Sc | [facility] | Bryce Tao, | | | 2015 | ann | Medical Clinic | PA-C [address] | | | | | Internal Medicine | [place] [address] | | | | | Coco Varsha [facility] | [phone] | | | | | [place] | | | | | | [address] | | | | | | [phone] | | | +--------+ + + + [...]
--- OUTSIDE RECORDS SUMMARY | ~2020-06-15 | XMS | Encounter Summary ---
Demographics + + + | Address | [address] | | | [place] [address] | + + + | Home Phone | | + + + | Preferred Language | Unknown | + + + | Marital Status | Single | + + + | Latter Day Affiliation | CAT | + + + [...] Team Providers + +------+ + | Care Senior Linux Systems Engineer Name | Role | Phone | + +------+ + PCP | Unavailable | + +------+ + Encounter Details +--------+ + + + + | Date | Type | Department | Care Team | Description | +--------+ + + + + | 10/27/ | Letter-Hernandez | | Letter, Clinic | Letters | | 2005 | scribed | | | | +--------+ + + [...] as of this encounter Progress Notes Interface, Hose Sprayer In - 04/12/2005 12:14 AM PDT [id number] 10/27/2004 10/27/2004 [id number] JAKECOURTNEY Guevara [address] [place] [address] or October 27, 2004 Fransisco Enrique M.D. [address], [facility] [place] [address] RE: LORENA BERRIOS MR #: [id number] Dear Dr. Enrique: Lorena Berrios was reviewed in the clinic today as a 2-week followup of her initial consultation for multiple joint pain which was reviewed with Dr. 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 The sedimentation rate is 15, and the x-rays of her pelvis, ankle, and hands were normal except for osteoarthritic changes of early changes at the distal DIP joints of both the hands. The patient does not report any improvement in the past 2 weeks, and her symptoms remain static. She was supposed to have physiotherapy which she will be starting this Wednesday. The case was reexamined with Dr. Park, and clinically, she does not have any signs or symptoms of rheumatoid arthritis, and her sedimentation rate is 15. It is very very unlikely that she has rheumatoid arthritis. Because she does have multiple joint point tenderness, she has been diagnosed with a tentative diagnosis of fibromyalgia, and she has been advised regarding the same, and literature has been provided to the patient for a better understanding of the problem. Advice has been given to the patient regarding better sleep, taking night medication, either Ambien or its substitute, which she is already on and also take Effexor for her depression which she is already on and she can try nonsteroidal antiinflammatories, whatever she can take. As she has a history of GERD, she has been advised to take the nonsteroidals with care. The plan was discussed with Dr. Toure who agrees with the plan, and we will be glad to review her if need be, but the primary treatment would be better sleep, exercise program, and pain medications as needed. Thanks for giving the opportunity to see Ms. Berrios. Sincerely, Estuardo Alexandre M.D. Ovidio Park M.D. / [id number] / [id number] / [id number] / [id number] C: 10/29/2004 amm documented i n this encounter Plan of Treatment Not on filedocumented as of this encounter Visit Diagnoses Not on filedocumented in this encounter"
--- OUTSIDE RECORDS SUMMARY | ~2020-06-15 | XMS | Encounter Summary ---
Demographics + + + | Address | [address] | | | [place] [address] | + + + | Home Phone | | + + + | Preferred Language | Unknown | + + + | Marital Status | Single | + + + | Hindu Affiliation | CAT | + + + [...] Team Providers + +------+ + | Care Cyber Defense Forensics Analyst Name | Role | Phone | + +------+ + PCP | Unavailable | + +------+ + Encounter Details +--------+ + + + + | Date | Type | Department | Care Team | Description | +--------+ + + + + | 07/12/ | Documentati | Anesthesiology | Unknown . | | | 2003 | on | [address] | | | | | | [place], | | | | | | [place] [address] | | | +--------+ + + + [...] documented as of this encounter Procedure Notes Unknown - 07/12/2004 8:45 AM PDTAssociated Order(s): ANESTHESIA/SEDATION Anesthesia PostO p Report Patient: LORENA BERRIOS [facility] Rec: [id number] Sex F Bdate: 1955 Date/Time Data Entered Into [facility] Anesth PostOp Complications Persistent Pain YES 07/12/04 08:45 Outcomes Information Satisfied with care YES 07/12/04 08:45 Info obtained from PATIENT 07/12/04 08:45 Outcome of Anesthesia NO CHANGE IN HOSPITAL COURSE 07/12/04 08:45 documented in this encounter Plan of Treatment Not [...] + + documented in this encounter Results ANESTHESIA/SEDATION (07/12/2004 8:45 AM PDT) + + + | Narrative | Performed At | + + + | Ordered by an unspecified provider. | | + + + + + | Transcriptions | + + | 07/12/2004 8:45 AM PDT Anesthesia PostOp Report | | | | Patient: LORENA BERRIOS Med Rec: [id number] Sex F Bdate: 1955 | | Date/Time Data | | Entered Into [facility] | | Anesth PostOp | | Complications | | Persistent Pain YES 07/12/04 08:45 | | Outcomes Information | | Satisfied with care YES 07/12/04 08:45 | | Info obtained from PATIENT 07/12/04 08:45 | | Outcome of Anesthesia NO CHANGE IN HOSPITAL COURSE 07/12/04 08:45 | | | + + documented in this encounter Visit Diagnoses Not on filedocumented in this encounter"
--- OUTSIDE RECORDS SUMMARY | ~2020-06-15 | XMS | Encounter Summary ---
Demographics + + + | Address | [address] | | | [place] [address] | + + + | Home Phone | | + + + | Preferred Language | Unknown | + + + | Marital Status | Single | + + + | Advent Affiliation | CAT | + + + | Race | White | + + + | Ethnic Group | Not or | + + + Author + + + | Author | [facility] | + + + | Organization | [facility] | + + + | Address | Unknown | + + + | Phone | Unavailable | + + + Support + + +---------+ + | Name | Relationship | Address | Phone | + + +---------+ + | Richard Hall | ECON | Unknown | | + + +---------+ + Care Team Providers + +------+ + | Care Right Of Way Supervisor Name | Role | Phone | + +------+ + PCP | Unavailable | + +------+ + Encounter Details +--------+ + + + + | Date | Type | Department | Care Team | Description | +--------+ + + + + | 10/06/ | Results | Rheumatology | Patsy Pereira, | | | 2004 | Only | Faculty [address] | [address] | | | | | Krishna King | [address] | | | | | Mailcode: OPC5 | [place], [place] | | | | | Outpatient Clinic | [address] | | | | | Building [place], | [phone] | | | | | [place] [address] | | | | | | [phone] | | | +--------+ + + + [...] + +--------+ + + + | X-RAY WRIST 2 VIEWS | Routin | 10/06/2004 | | Results for this | | BILATERAL | e | 12:54 PM | | procedure are in the | | | | PST | | results section. | + +--------+ + + + | X-RAY HAND 2 VIEWS | Routin | 10/06/2004 | | Results for this | | BILATERAL | e | 12:54 PM | | procedure are in the | | | | PST | | results section. | + +--------+ + + + | X-RAY ANKLE 2 VIEWS | Routin | 10/06/2004 | | Results for this | | LEFT | e | 12:54 PM | | procedure are in the | | | | PST | | results section. | + +--------+ + + + | X-RAY PELVIS 1 VIEW | Routin | 10/06/2004 | | Results for this | | | e | 12:53 PM | | procedure are in the | | | | PST | | results section. | + +--------+ + + + | SEDIMENTATION RATE | Routin | 10/06/2004 | | Results for this | | | e | 12:12 PM | | procedure are in the | | | | PST | | results section. | + +--------+ + + + documented in this encounter Results ANKLE 2 VIEWS LEFT (10/06/2004 12:54 PM PST) + + + + + + | Component | Value | Ref Range | Performed | Pathologist | | | | | At | Signature | + + + + + + | ANKLE 2 | Radiologist 1: VELVET, | | | | | VIEWS LEFT | Anil KAUR, | | | | | | Latasha-Radiologist 2: | | | | | | MANDO BECERRA M.D.EXAM: | | | | | | Three views of the left | | | | | | ankle COMPARISON: None. | | | | | | FINDINGS: No bone, joint | | | | | | or soft tissue | | | | | | abnormality is seen. | | | | | | IMPRESSION: Normal | | | | | | examination of the left | | | | | | ankle. | | | | | |Normal examination of the left ankle. | | | | | | | [...] | | + +---------+ + + | [facility] DEPARTMENT OF | | | | | RADIOLOGY | | | | + +---------+ + + WRIST 2 VIEWS BILATERAL (10/06/2004 12:54 PM PST) + + + + + + | Component | Value | Ref Range | Performed | Pathologist | | | | | At | Signature | + + + + + + | WRIST 2 | Radiologist 1: VELVET | | | | | BERTHA | Anil KAUR | | | | | LACEY | MLuigiDLuigi-Radiologist 2: | | | | | | MANDO BECERRA M.D.EXAM: | | | | | | Two views of both hands | | | | | | and wrists COMPARISON: | | | | | | None. FINDINGS: There | | | | | | are mild degenerative | | | | | | changes seen in the | | | | | | distalinterphalangeal | | | | | | joints. No other | | | | | | abnormality is seen. | | | | | | IMPRESSION: Mild | | | | | | degenerative changes in | | | | | | the distal | | | | | | interphalangeal joints | | | | | | ofboth hands. | | | | | | | | | | | | | | | | + + + + + + + + | Specimen | + + | | + + + +---------+ + + | Performing | Address | City/State/Zipcode | Phone Number | | Organization | | | | + +---------+ + + | [facility] DEPARTMENT OF | | | | | RADIOLOGY | | | | + +---------+ + + HAND 2 VIEWS BILATERAL (10/06/2004 12:54 PM PST) + + + + + + | Component | Value | Ref Range | Performed | Pathologist | | | | | At | Signature | + + + + + + | HAND 2 | Radiologist 1: VELVET, | | | | | VIEWS | Anil KAUR, | | | | | BILATERAL | MBeth-Radiologist 2: | | | | | | MANDO BECERRA M.D.EXAM: | | | | | | Two views of both hands | | | | | | and wrists COMPARISON: | | | | | | None. FINDINGS: There | | | | | | are mild degenerative | | | | | | changes seen in the | | | | | | distalinterphalangeal | | | | | | joints. No other | | | | | | abnormality is seen. | | | | | | IMPRESSION: Mild | | | | | | degenerative changes in | | | | | | the distal | | | | | | interphalangeal joints | | | | | | ofboth hands. | | | | | | | | | | | | | | | | + + + + + + + + | Specimen | + + | | + + + +---------+ + + | Performing | Address | City/State/[facility] | Phone Number | | Organization | | | | + +---------+ + + | [facility] DEPARTMENT OF | | | | | RADIOLOGY | | | | + +---------+ + + PELVIS 1 VIEW (10/06/2004 12:53 PM PST) + + + + + + | Component | Value | Ref Range | Performed | Pathologist | | | | | At | Signature | + + + + + + | PELVIS 1 | Radiologist 1: VELVET, | | | | | ABE | Anil KAUR | | | | | Alissa Pagan-Radiologist 2: | | | | | | MANDO BECERRA M.D.EXAM: | | | | | | A.P. pelvis COMPARISON: | | | | | | None. FINDINGS: Both | | | | | | hips are of normal | | | | | | appearance. There have | | | | | | been laminectomiesat L4 | | | | | | and L5. IMPRESSION: | | | | | | Normal appearance of | | | | | | both hips. | | | | | | | | | | | |Normal appearance of both hips. | | | | | | | | | | | | | | | | + + + + + + + + | Specimen | + + | | + + + +---------+ + + | Performing | Address | City/State/Zipcode | Phone Number | | Organization | | | | + +---------+ + + | [facility] DEPARTMENT OF | | | | | RADIOLOGY | | | | + +---------+ + + SEDIMENTATION RATE (10/06/2004 12:12 PM PST) + +-------+ + + + | Component | Value | Ref Range | Performed | Pathologist | | | | | At | Signature | + +-------+ + + + | SEDIMENTATI | 15 | <31 mm/hr | [facility] | | | ON RATE | | | DEPARTMENT | | | | | | OF | | | | | | PATHOLOGY | | + +-------+ + + + + + | Specimen | + + | | + + + + + + + | Performing | Address | City/State/Zipcode | Phone Number | | Organization | | | | + + + + + | [facility] | [address] | [place] [address] | | | PATHOLOGY | [address] | | | + + + + + | [facility] DEPARTMENT OF | [address] | [place] [address] | | | PATHOLOGY | [address] | | | + + + + + documented in this encounter Visit Diagnoses Not on filedocumented in this encounter"
--- OUTSIDE RECORDS SUMMARY | ~2020-06-15 | XMS | Encounter Summary ---
Demographics + + + | Address | [address] | | | [place] [address] | + + + | Home Phone | | + + + | Preferred Language | Unknown | + + + | Marital Status | Single | + + + | Oriental Orthodox Affiliation | CAT | + + + | Race | White | + + + | Ethnic Group | Not or | + + + Author + + + | Author | [facility] | + + + | Organization | [facility] | + + + | Address | Unknown | + + + | Phone | Unavailable | + + + Support + + +---------+ + | Name | Relationship | Address | Phone | + + +---------+ + | Richard Berrios | ECON | Unknown | | + + +---------+ + Care Team Providers + +------+ + | Care Snowboard Designer Name | Role | Phone | + +------+ + | No Pcp Per Patient | PCP | Unavailable | + +------+ + Reason for Visit + + + | Reason | Comments | + + + | COPD - Chronic | Difficulty breathing, titght chest and allergy symptoms x 1 week. | | obstructive | Previous patient of Esteban Alba Establishing with Kimberley Chang in | | pulmonary disease | June. | + + + Encounter Details +--------+---------+ + + + | Date | Type | Department | Care Team | Description | +--------+---------+ + + + | 04/23/ | Office | [facility] | Molly Jaime | Mild intermittent | | 2017 | Visit | Medical Clinic | MD Garrett [address] [facility] [address] | asthma without | | | | Internal Medicine | [address] | complication | | | | [address] | [place] [address] | (Primary Dx); Cough | | | | [place], [place] | | present for greater | | | | [address] | | than 3 weeks | | | | [phone] | | | +--------+---------+ + + + Social History + + [...] + + documented as of this encounter Last Filed Vital Signs + + + + + | Vital Sign | Reading | Time Taken | Comments | + + + + + | Blood Pressure | 140/70 | 04/23/2017 1:07 PM | | | | | PDT | | + + + + + | Pulse | 54 | 04/23/2017 1:07 PM | | | | | PDT | | + + + + + | Temperature | - | - | | + + + + + | Respiratory Rate | 18 | 04/23/2017 1:07 PM | | | | | PDT | | + + + + + | Oxygen Saturation | 99% | 04/23/2017 1:07 PM | | | | | PDT | | + + + + + | Inhaled Oxygen | - | - | | | Concentration | | | | + + + + + | Weight | 81.6 kg (180 lb) | 04/23/2017 1:07 PM | | | | | PDT | | + + + + + | Height | 157 cm (5' 1.81") | 04/23/2017 1:07 PM | | | | | PDT | | + + + + + | Body Mass Index | 33.12 | 04/23/2017 1:07 PM | | | | | PDT | | + + + + + documented in this encounter Patient Instructions Patient Instructions Molly Jaime MD - 04/23/2017 1:00 PM PDT1. Mild intermittent asthma without complication Pro air sent to pharmacy in [place]. Take 2 puffs up to four times a day as needed for w heezing and cough - X-RAY CHEST 2 VIEW; Future Follow up with Ashlee OWEN For management of the remainder of your problems. Zoe ctronically signed by Molly Jaime MD at 04/23/2017 1:49 PM PDT documented in this encounter Progress Notes Molly Jaime MD - 04/23/2017 1:00 PM PDT 04/23/17 Lorena Ramsey [place] 1955 Internal Medicine Clinic Visit HPI: This is a 62 y.o. female here for episode of shortness of breath due to the recent sm crow in the air. She has been on proair in the past, but did not have any. She has long and heavy smoking history but quit 10/2015. PFT's done 11/18/2009: FEV1 109% and FVC 106% - fabio l. Medication: naproxen sodium (ALEVE) 220 mg oral tablet, Take 220 mg by mouth two times daily. PROAIR HFA 90 mcg/actuation inhalation HFA aerosol inhaler, INHALE 2 PUFFS BY MOUTH EVERY 4 TO 6 HOURS IF NEEDED PMH Past Medical History: Diagnosis Date Asthma 04/23/2017 Diabetes mellitus (HCC) Essential hypertension 04/23/2017 Hypothyroid 04/23/2017 Lumbar spinal stenosis 04/23/2017 Pure hypercholesterolemia 04/23/2017 PSH Past Surgical History Procedure Laterality Date Laminectomy L3-4; L4-5 Cholecystectomy Tonsillectomy Cataract extraction with lens implant Bilateral C section times 3 Surgery of back total of 3 back surgeries : Dr Godwin from [place] Social history Social History Substance Use Topics Smoking status: Former Smoker Packs/day: 0.33 Years: 5.00 Types: Cigarettes Quit date: 09/13/2015 Smokeless tobacco: Not on file Alcohol use No Social History Narrative Lives on [address] outside of [place] . She is single, lives with her 25 ye ar old son. 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 She was heavy smoker - started at age 16 - smoked on and off until now. She has 3 sons. All in the [place] area. Health Maintenance Due: Health Maintenance Due Topic Date Due SUBSTANCE ABUSE SCREENING 1967 DEPRESSION SCREEN 04/22/2017 DIABETIC EYE EXAM 04/06/2017 ROS: Review of Systems Constitutional: Negative for chills, diaphoresis, fever, malaise/fatigue and weight loss. Eyes: Negative for blurred vision and double vision. Respiratory: Positive for cough and shortness of breath. Cardiovascular: Negative for chest pain and leg swelling. Gastrointestinal: Positive for constipation and diarrhea. Negative for abdominal pain, hear tburn, nausea and vomiting. IBS Neurological: Negative for headaches. PE:160/70 BP 140/70 | Pulse 54 | RR 18 | Ht 1.57 m (5' 1.81") | Wt 81.6 kg (180 lb) | SpO2 99% | BMI 33.12 kg/(m^2) Physical Exam Constitutional: She appears well-developed and well-nourished. Cardiovascular: Normal rate, regular rhythm and normal heart sounds. Pulmonary/Chest: Effort normal and breath sounds normal. Abdominal: Soft. Bowel sounds are normal. Musculoskeletal: She exhibits no edema. Appraisal and Plan 1. Mild intermittent asthma without complication Pro air sent to pharmacy in [place]. Take 2 puffs up to four times a day as needed for w heezing and cough - X-RAY CHEST 2 VIEW; Future Offered to do lab work today in preparation for her appointment with Ashlee, but she decl ined Follow up with Ashlee Chang ANP For management of the remainder of your problems. Dorie Barker MA - 04/23/2017 1:00 PM PDT Chief Complaint Patient presents with COPD - Chronic obstructive pulmonary disease Difficulty breathing, titght chest and allergy symptoms x 1 week. Previous patient of Noé Tao. Establishing with Kimberley Chang in June. Family Practice Nurse Practitioner Offered to Patient: declined Health Maintenance Due Topic SUBSTANCE ABUSE SCREENING DEPRESSION SCREEN DIABETIC EYE EXAM Health Maintenance (Actions taken) N/A SBIRT/CRAFFT, Depression Screen Not appropriate for today's visit. Non established patient. Dorie Das, Mailroom Supervisor documented in this encou nter Plan of Treatment Not on filedocumented as of this encounter Results X-RAY CHEST 2 VIEW (04/23/2017 1:58 PM PDT) + + | Specimen | + + | | + + + + + | Narrative | Performed At | + + + | [address] | [facility] | | [place], [place] [address] [place] [address] | | [phone] Name: LORENA BERRIOS | RADIOLOGY | | Phys: MOLLY JAIME : 1955 Sex: F | | | CSN: [id number] MR# [id number] Exam Date: | | | 04/23/2017 EXAM: [...] Transcribed Date/Time: 04/23/2017 | | | 14:40 Agency Manager: FLUENCY | | + + + + + | Procedure Note | + + | Interface, Radiology Results - 04/23/2017 2:45 PM PDT [address] | | [address] [place] [address] | | Name: LORENA BERRIOS Phys: MOLLY JAIME : 1955 | | Sex: F CSN: [id number] MR# [id number] Exam Date: 04/23/2017 EXAM:X-RAY | | CHEST [...] Miah Brothers MD Transcribed Date/Time: 04/23/2017 14:40Transcriptionist: GUILLERMINA | | | |X-RAY CHEST 2 VIEW [...] | | |Transcribed Date/Time: 04/23/2017 14:40 | |Agency Manager: GUILLERMINA | | | | | | | + + + +---------+ + + | Performing | Address | City/State/[facility] | Phone Number | | Organization | | | | + +---------+ + + | [facility] DEPARTMENT OF | | | | | RADIOLOGY | | | | + +---------+ + + documented in this encounter Visit Diagnoses + + | Diagnosis | + + | Mild intermittent asthma without complication - Primary Unspecified asthma | + + | Cough present for greater than 3 weeks | + + documented in this encounter
--- OUTSIDE RECORDS SUMMARY | ~2020-06-15 | XMS | Encounter Summary ---
Demographics + + + | Address | [address] | | | [place] [address] | + + + | Home Phone | | + + + | Preferred Language | Unknown | + + + | Marital Status | Single | + + + | Synagogue Affiliation | CAT | + + + | Race | White | + + + | Ethnic Group | Not or | + + + Author + + + | Author | [facility] | + + + | Organization | [facility] | + + + | Address | Unknown | + + + | Phone | Unavailable | + + + Support + + +---------+ + | Name | Relationship | Address | Phone | + + +---------+ + | Richard Hall | ECON | Unknown | | + + +---------+ + Care Team Providers + +------+ + | Care Gear Setter Name | Role | Phone | + +------+ + PCP | Unavailable | + +------+ + Reason for Visit + + + | Reason | Comments | + + + | Refill Request | | + + + Encounter Details +--------+--------+ + + + | Date | Type | Department | Care Team | Description | +--------+--------+ + + + | 04/22/ | Refill | [facility] | Molly Jaime | Refill Request | | 2017 | | Medical Clinic | MD Garrett [address] [facility] | | | | | Internal Medicine | [address] | | | | | [facility] [address] [facility] | [place] [address] | | | | | [place] | | | | | | [address] | | | | | | [phone] | | | +--------+--------+ + + + Social History + +-------+ [...] + + documented as of this encounter Miscellaneous Notes Telephone Encounter - RigoMarlaSTONE wharton - 04/22/2017 2:38 PM PDTFormatting of this note migh t be different from the original. I see pt has an appointment tomorrow w/ Dr. Jaime for chest tightness, sneezing, itchy e yes x 1 week dx of COPD. Previous Esteban Tao pt. Est. Care 06/30/17 w/ Ashlee Chang. Date of last visit with PCP: No past encounter found. Requested Prescriptions Pending Prescriptions Disp Refills PROAIR HFA 90 mcg/actuation inhalation HFA aerosol inhaler [Pharmacy Med Name: PROAIR H FA 90 MCG INHALER] 8.5 Inhaler 3 Sig: INHALE 2 PUFFS BY MOUTH EVERY 4 TO 6 HOURS IF NEEDED No future appointments scheduled. Routing to S[place]. Elodia Sierra LPN documented in this encoun ter Plan of Treatment Not on filedocumented as of this encounter Visit Diagnoses Not on filedocumented in this encounter"
--- OUTSIDE RECORDS SUMMARY | ~2020-06-15 | XMS | Encounter Summary ---
Demographics + + + | Address | [address] | | | [place] [address] | + + + | Home Phone | | + + + | Preferred Language | Unknown | + + + | Marital Status | Single | + + + | Yazidism Affiliation | Unknown | + + + | Race | Unknown | + + + | Ethnic Group | Unknown | + + + Author + + + | Author | [facility] | | | and [place] | + + + | Organization | [facility] | | | and [place] | + + + | Address | Unknown | + + + | Phone | Unavailable | + + + Care Team Providers + +------+ + | Care Buttermilk Drier Operator Name | Role | Phone | + +------+ + PCP | Unavailable | + +------+ + Encounter Details +--------+ + + + + | Date | Type | Department | Care Team | Description | +--------+ + + + + | 10/25/ | Hospital | [facility] | | | | 2001 | Encounter | MED CTR XRAY [address] | | | | | | [address] | | | | | | [place] [address] | | | | | | [phone] | | | +--------+ + + + [...]
--- OUTSIDE RECORDS SUMMARY | ~2020-06-15 | XMS | Encounter Summary ---
Demographics + + + | Address | [address] | | | [place] [address] | + + + | Home Phone | | + + + | Preferred Language | Unknown | + + + | Marital Status | Single | + + + | Mormon Affiliation | Unknown | + + + | Race | Unknown | + + + | Ethnic Group | Unknown | + + + Author + + + | Author | [facility] | | | and [place] | + + + | Organization | [facility] | | | and [place] | + + + | Address | Unknown | + + + | Phone | Unavailable | + + + Care Team Providers + +------+ + | Care Application Counselor Name | Role | Phone | + +------+ + PCP | Unavailable | + +------+ + Encounter Details +--------+ + + + + | Date | Type | Department | Care Team | Description | +--------+ + + + + | 09/16/ | [facility] | [facility] | Ayo Shen | | | 2009 | Encounter | MED CTR XRAY [address] | | | | | [place] | [facility] [place] | | | | | [place] [address] | [address] | | | | | [phone] | | | +--------+ + + + [...]
--- OUTSIDE RECORDS SUMMARY | ~2020-06-15 | XMS | Encounter Summary ---
Demographics + + + | Address | [address] | | | [place] [address] | + + + | Home Phone | | + + + | Preferred Language | Unknown | + + + | Marital Status | Single | + + + | Pentecostalism Affiliation | CAT | + + + [...] Team Providers + +------+ + | Care Safety Scientist Name | Role | Phone | + +------+ + PCP | Unavailable | + +------+ + Encounter Details +--------+ + + + + | Date | Type | Department | Care Team | Description | +--------+ + + + + | 07/11/ | Procedure - | | Documentation, | OP REPORT-TEACHING | | 2004 | | | Teaching Physician | | | | Transcribed | | | | +--------+ + + [...] as of this encounter Procedure Notes Interface, Bridge Ironworker Helper In - 09/19/2005 4:49 AM PST [id number] YASH Guevara Date: 07/11/2004 Attending Surgeon: Geraldine Holt M.D., Ph.D. Parts Room Assistant(s): Theodore Brandon M.D. Preoperative Diagnosis(es): Lumbar stenosis, L4-L5. Postoperative Diagnosis(es): Lumbar stenosis, L4-L5. Procedures Performed: L4 laminectomy, L5 laminectomy, medial facetectomy, and bilateral L4-L5 foraminotomy. Co-Surgeon: Israel Roberson M.D. Anesthesia: General endotracheal. Estimated Blood Loss: Less than 100 mL. Indications: The patient is 49-year-old female with chronic low back pain with progressive symptoms over the last few years which include neurogenic claudications. She was referred to Neurosurgery and seen in consultation. She has a rather marked lumbar stenosis at L4-L5, and these are consistent with her clinical symptoms. Recommendations were for surgical decompression. She has failed treatment to date, and her symptoms have become intractable. The patient wished to proceed with surgery. A full PARQ conference had taken place prior to surgery. She accepted all the risks of surgery and wished to proceed. Informed consent was obtained prior to her being taken to the Operating Room. Procedure: Please see Dr. Roberson's note for the details of the operation. In summary, we performed a posterior decompression with an L4 and L5 laminectomy, medial facetectomy, and bilateral foraminotomies at L4-L5 resulting in excellent decompression of the spinal canal and the nerve roots. There were no intraoperative complications. Neurosurgery attending, Vick was present for the cross and critical portions of the case which included the entire decompression consisting of the laminectomy, medial facetectomy, foraminotomies, and the closure and was immediately available for all other aspects. This has been in accordance with the Medicare regulations. Geraldine Holt M.D., Ph.D. BRYN / [id number] / [id number] / [id number] / [id number] documented i n this encounter Plan of Treatment Not on filedocumented as of this encounter Procedures + +--------+ + + + | Procedure Name | Priori | Date/Time | Associated Diagnosis | Comments | | | ty | | | | + +--------+ + + + | TEACHING PHYSICIAN | | 07/11/2004 | | | + +--------+ + + + documented in this encounter Visit Diagnoses Not on filedocumented in this encounter"
--- OUTSIDE RECORDS SUMMARY | ~2020-06-15 | XMS | Encounter Summary ---
Demographics + + + | Address | [address] | | | [place] [address] | + + + | Home Phone | | + + + | Preferred Language | Unknown | + + + | Marital Status | Single | + + + | Caodaism Affiliation | Unknown | + + + | Race | Unknown | + + + | Ethnic Group | Unknown | + + + Author + + + | Author | [facility] | | | and [place] | + + + | Organization | [facility] | | | and [place] | + + + | Address | Unknown | + + + | Phone | Unavailable | + + + Care Team Providers + +------+ + | Care Ditch Worker Name | Role | Phone | + +------+ + PCP | Unavailable | + +------+ + Encounter Details +--------+ + + + + | Date | Type | Department | Care Team | Description | +--------+ + + + + | [facility] | Fransisco Godwin MD | | | 2010 | Encounter | MED CTR XRAY [address] | [address] | | | | | [address] | [place] [address] | | | | | [place] [address] | [phone] | | | | | [phone] | | | +--------+ + + + [...] | + +--------+ + + + | XR LUMBAR SPINE 2 OR | | 03/03/2011 | | Results for this | | 3 VW | | 12:08 PM | | procedure are in the | | | | PDT | | results section. | + +--------+ + + + documented in this encounter Results XR Lumbar Spine 2 or 3 Vw (03/03/2011 12:08 PM PDT) + + | Specimen | + + | | + + + + + | Narrative | Performed At | + + + | [facility] Diagnostic [facility] Department | [facility] | | [address] | [facility] | | LUMBAR SPINE CLINICAL | DIAG IMG | | HISTORY: FOLLOW UP L4-5 FUSION. COMPARISON: 01/06/2011 | | | FINDINGS: Bilateral posterior pedicle screw and raven fixation is | | | present across L4-5, with an interbo dy spacer. Laminectomy changes | | | are also present at these levels. There is slight retrolisthesis of | | | L3 on L4, measuring under 5 mm. Alignment is otherwise normal and | | | overall appearances are stable whe n compared to prior. No | | | adjacent abnormalities are seen. IMPRESSION: 1. STABLE | | | POSTOP L4-5 LAMINECTOMY AND FUSION CHANGES. Dictated Date/Time: | | | 03/03/2011 15:20 Transcribed Date/Time: 03/03/2011 16:01 | | | Video Poker Floorman: <Electronically Signed by Kevin Guevara | | | MD Cornelio> 03/03/11 2309 | | + + + + + | Procedure Note | + + | Lalo, Lucio Conversion - 10/20/2013 3:12 PM [facility] | | Diagnostic Imaging Department [address] [place] [address] | | LUMBAR SPINE CLINICAL HISTORY: FOLLOW UP L4-5 FUSION. | | COMPARISON: 01/06/2011 FINDINGS: Bilateral posterior pedicle screw and raven fixation is | | present across L4-5, with an interbody spacer. Laminectomy changes are also present at | | these levels. There is slight retrolisthesis of L3 on L4, measuring under 5 mm. | | Alignment is otherwise normal and overall appearances are stable when compared to prior. | | No adjacent abnormalities are seen. IMPRESSION: 1. STABLE POSTOP L4-5 LAMINECTOMY | | AND FUSION CHANGES. Dictated Date/Time: 03/03/2011 15:20Transcribed Date/Time: | | 03/03/2011 16:01Transcriptionist: <Electronically Signed by Kevin Grimes | | > 03/03/11 4603 | | | |FINDINGS: Bilateral posterior pedicle screw and raven fixation is present across L4-5, with an interbo | |dy spacer. Laminectomy changes are also present at these levels. There is slight retrolis thesis of | |L3 on L4, measuring under 5 mm. Alignment is otherwise normal and overall appearances are stable whe | |n compared to prior. No adjacent abnormalities are seen. | | | |IMPRESSION: | |1. STABLE POSTOP L4-5 LAMINECTOMY AND FUSION CHANGES. | | | |Dictated Date/Time: 03/03/2011 15:20 | |Transcribed Date/Time: 03/03/2011 16:01 | |Video Poker Floorman: | |<Electronically Signed by Kevin Grimes MD> 03/03/11 3541 | + + + +---------+ + + | Performing | Address | City/State/Zipcode | Phone Number | | Organization | | | | + +---------+ + + | [place] | | | | | [facility] | | | | + +---------+ + + documented in this encounter Visit Diagnoses Not on filedocumented in this encounter"
--- OUTSIDE RECORDS SUMMARY | ~2020-06-15 | XMS | Encounter Summary ---
Demographics + + + | Address | [address] | | | [place] [address] | + + + | Home Phone | | + + + | Preferred Language | Unknown | + + + | Marital Status | Single | + + + | Catholic Affiliation | Unknown | + + + | Race | Unknown | + + + | Ethnic Group | Unknown | + + + Author + + + | Author | [facility] | | | and [place] | + + + | Organization | [facility] | | | and [place] | + + + | Address | Unknown | + + + | Phone | Unavailable | + + + Care Team Providers + +------+ + | Care Logging Equipment Operator Name | Role | Phone | + +------+ + PCP | Unavailable | + +------+ + Encounter Details +--------+ + + + + | Date | Type | Department | Care Team | Description | +--------+ + + + + | 01/06/ | [facility] | [facility] | Fransisco Godwin MD | | | 2010 | Encounter | MED CTR XRAY [address] | [address] | | | | | [address] | [place] [address] | | | | | [place] [address] | [phone] | | | | | [phone] | | | +--------+ + + + [...] XR LUMBAR SPINE 2 OR | | 01/06/2011 | | Results for this | | 3 VW | | 7:43 AM | | procedure are in the | | | | PDT | | results section. | + +--------+ + + + documented in this encounter Results XR Lumbar Spine 2 or 3 Vw (01/06/2011 7:43 AM PDT) + + | Specimen | + + | | + + + + + | Narrative | Performed At | + + + | [facility] Diagnostic Imaging Department | [facility] | | [address] | [facility] | | TWO VIEW LUMBAR SPINE SERIES: | DIAG IMG | | 0820 hours, 06 January 2011 COMPARISON: 05 December CLINICAL | | | HISTORY: STATUS POST LUMBAR FUSION. FINDINGS: There is stable | | | alignment of the lumbar bodies status post anterior interbody fusion | | | and posterior pedicle screw instrumentation at L4-5. Hardware is | | | intact and in stable position. IMPRESSION: 1. STATUS POST | | | DECOMPRESSION, INTERBODY FUSION AND POSTERIOR PEDICLE SCREW | | | INSTRUMENTATION L4-5. Dictated Date/Time: 01/06/2011 13:27 | | | Transcribed Date/Time: 01/06/2011 13:46 Home Care Rn: | | | <Electronically Signed by Austin Dhillon MD> 01/06/11 5338 | | + + + + + | Procedure Note | + + | Lalo, Rad Conversion - 10/20/2013 2:47 PM [facility] | | Diagnostic Imaging Department [address] [place] [address] | | TWO VIEW LUMBAR SPINE SERIES: 0820 hours, 06 January 2011 | | COMPARISON: 05 December CLINICAL HISTORY: STATUS POST LUMBAR FUSION. FINDINGS: There | | is stable alignment of the lumbar bodies status post anterior interbody fusion and | | posterior pedicle screw instrumentation at L4-5. Hardware is intact and in stable | | position. IMPRESSION: 1. STATUS POST DECOMPRESSION, INTERBODY FUSION AND POSTERIOR | | PEDICLE SCREW INSTRUMENTATION L4-5. Dictated Date/Time: 01/06/2011 13:27 Transcribed | | Date/Time: 01/06/2011 13:46 Home Care Rn: <Electronically Signed by Austin Bernard | | MD Alejo> 01/06/111657 | |CLINICAL HISTORY: STATUS POST LUMBAR FUSION. | | | |FINDINGS: There is stable alignment of the lumbar bodies status post anterior interbody fu chalo and | |posterior pedicle screw instrumentation at L4-5. Hardware is intact and in stable position. | | | |IMPRESSION: | |1. STATUS POST DECOMPRESSION, INTERBODY FUSION AND POSTERIOR PEDICLE | |SCREW INSTRUMENTATION L4-5. | | | |Dictated Date/Time: 01/06/2011 13:27 | |Transcribed Date/Time: 01/06/2011 13:46 | |Home Care Rn: | |<Electronically Signed by Austin Dhillon MD> 01/06/111657 | + + + +---------+ + + | Performing | Address | City/State/Zipcode | Phone Number | | Organization | | | | + +---------+ + + | [place] | | | | | [facility] | | | | + +---------+ + + documented in this encounter Visit Diagnoses Not on filedocumented in this encounter"
--- OUTSIDE RECORDS SUMMARY | ~2020-06-15 | XMS | Encounter Summary ---
Demographics + + + | Address | [address] | | | [place] [address] | + + + | Home Phone | | + + + | Preferred Language | Unknown | + + + | Marital Status | Single | + + + | Advent Affiliation | Unknown | + + + | Race | Unknown | + + + | Ethnic Group | Unknown | + + + Author + + + | Author | [facility] | | | and [place] | + + + | Organization | [facility] | | | and [place] | + + + | Address | Unknown | + + + | Phone | Unavailable | + + + Care Team Providers + +------+ + | Care Director Investment Banking Name | Role | Phone | + +------+ + PCP | Unavailable | + +------+ + Encounter Details +--------+ + + + + | Date | Type | Department | Care Team | Description | +--------+ + + + + | 04/28/ | Hospital | [facility] | | | | 2000 | Encounter | MED CTR XRAY [address] | | | | | | [address] | | | | | | [place] [address] | | | | | | [phone] | | | +--------+ + + + [...]
--- OUTSIDE RECORDS SUMMARY | ~2020-06-15 | XMS | Encounter Summary ---
Demographics + + + | Address | [address] | | | [place] [address] | + + + | Home Phone | | + + + | Preferred Language | Unknown | + + + | Marital Status | Single | + + + | Amish Affiliation | CAT | + + + [...] Team Providers + +------+ + | Care Pharmacy Benefits Coordinator Name | Role | Phone | + +------+ + PCP | Unavailable | + +------+ + Encounter Details +--------+ + + + + | Date | Type | Department | Care Team | Description | +--------+ + + + + | 04/23/ | Office | | Note, Outpatient | Progress Note | | 2004 | Visit-Trans | | Clinic | | | | cribed | | [...] as of this encounter Progress Notes Interface, Prekindergarten Teacher In - 04/12/2005 7:40 AM PDTClinic Date: 04/23/2004 Clinic: Referring Physician: Dr. Enrique, [facility] [address] [place] [address] Referring Physician: Dr. Serrano. Mrs. Hall presents with a chief complaint of low back pain. History Of Present Illness: The patient is a 49-year-old woman with chronic low back and buttock pain since age 25. She states it began with a fall during under tailbone as well as a spinal tap at that time. She states she has had chronic low back pain since that time with markedly progressive symptoms over the past 6 years. She describes the pain in her midline, lower back, near the panty line as well as in the bilateral buttocks. Over the last 3 years, she has had progressively worsening pain extending down posterior right leg to the ankle. She states that pain is constant, severe, and is worse when lying, recumbent, and with walking. She does state that she is still able to walk up to a mile if she needs to but does have to rest frequently. Position changes do alleviate the pain somewhat. She is only able to stand at one place for approximately 3 minutes. She has tried a number of pain medications with little relief. She was seen approximately [address] Daron Sanches, and surgery was not indicated at that time. Past Medical History: Hypercholesterolemia, diabetes, depression, insomnia, mild asthma, gallstones. Past Surgical History: x3, tonsillectomy, cholecystectomy, right foot surgery, apparently some sort of neurolysis. Current Medications: Reglan 10 mg p.o. q.i.d., Vanessa 60 mg daily, Zoloft 75 mg p.o. daily, Effexor 37.5 mg p.o. daily, lovastatin 40 mg p.o. b.i.d., Ambien 10 mg p.o. nightly, pentazocine and naloxone tablet 1 to 2 tablets p.o. q.6h. p.r.n., and albuterol MDI inhaler 1 to 2 puffs q.4h. p.r.n. Allergies: ULTRAM, MORPHINE, CODEINE, VICODIN, CELEBREX, HYDROCODONE, DURAGESIC, MS CONTIN. Review Of Systems: The patient complains of diffuse neck, back pain, pain to her shoulder blades and her shoulders. The patient has chronic shortness of breath. The patient has lost approximately 40 pounds with minimal improvement in her back pain. Physical Examination General: Moderately obese [place] woman in no acute distress. Vital Signs: Blood pressure 130/80, pulse 64, respirations 12. Pain 4 out of 10 at rest. Mental Status: Awake, alert, and oriented x4 with fluent speech. Cranial nerves: Pupils are equal, round, and reactive to light. Extraocular movements are intact. Visual drummond are intact to confrontation. Facial sensation is symmetric and intact. Palate and tongue within the midline. The patient has 5/5 shoulder shrug. Neurologic exam reveals no pronator drift. She has 5/5 strength in biceps, triceps, wrist flexion extension, and intrinsic hand muscles. Lower extremities: Exam somewhat limited by pain. The patient appears to have 4/5 strength, bilateral hip flexors, knee extension, knee flexion. The patient has 4+/5 strength in the ankle, plantar, and dorsiflexion and 4/5 strength in extensor hallucis longus bilaterally. Sensory examination is intact to light touch, temperature, and proprioception in all extremities. The patient has 2+ deep tendon reflexes at the biceps, triceps, brachioradialis, patella, and ankles bilaterally. Toes are downgoing, and there is no clonus. Cerebellar testing intact. The patient's gait slightly slowed. The patient uses a cane in her right hand secondary to left ankle pain. Data: MRI from November 2003 is reviewed, reveals severe stenosis at L4-L5 with hypertrophied ligamentum flavum. There is moderate stenosis at L3-L4 and mild stenosis at L2-L3. Mild stenosis at L5-S1. The articular facets at L4-L5 also appear degenerative. Flexion extension x-rays were performed today which reveal mild anterior spondylolisthesis at L4 and L5. Plan: L4-L5 laminectomy plus minus facetectomy and possible fusion if there is significant movement intraoperatively. The patient is very interested in having this done as soon as possible. Plan was discussed with Dr. Holt. We will proceed with scheduling the patient hopefully next week. Theodore Brandon M.D. Geraldine Holt M.D., Ph.D. / [id number] / [id number] / [id number] / C: 05/02/2004 SIM cc: Derrick Serrano MD [address] [place], [place] [id number] signed by Interface, Prekindergarten Teacher In at 04/12/2005 7:40 AM PDTdocumented in this encounter Plan of Treatment Not on filedocumented as of this encounter Visit Diagnoses Not on filedocumented in this encounter"
--- OUTSIDE RECORDS SUMMARY | ~2020-06-15 | XMS | Encounter Summary ---
Demographics + + + | Address | [address] | | | [place] [address] | + + + | Home Phone | | + + + | Preferred Language | Unknown | + + + | Marital Status | Single | + + + | Latter Day Affiliation | Unknown | + + + | Race | Unknown | + + + | Ethnic Group | Unknown | + + + Author + + + | Author | [facility] | | | and [place] | + + + | Organization | [facility] | | | and [place] | + + + | Address | Unknown | + + + | Phone | Unavailable | + + + Care Team Providers + +------+ + | Care Surgical Attendant Name | Role | Phone | + +------+ + PCP | Unavailable | + +------+ + Encounter Details +--------+ + + + + | Date | Type | Department | Care Team | Description | +--------+ + + + + | 12/04/ | Hospital | [facility] | Fransisco Godwin MD | | | 2010 - | Encounter | MED CTR SURGICAL | [address] | | | | | [address] | [place] [address] | | | 12/06/ | | [place] [address] | [phone] | | | 2010 | | [phone] | | | +--------+ + + + [...] + + documented as of this encounter Discharge Summaries Fransisco Godwin MD - 12/04/2010 6:05 AM PDTADMISSION DATE: 12/04/2010 DISCHARGE DATE: 12/06/2010 CHIEF COMPLAINT: Back pain. PERTINENT HISTORY: The patient is a 55-year-old female that had a prior history of back hammond rgery. She had 2 different surgeries performed and has developed a spondylolisthesis. Her back pain had be en increas ing, she had increased difficulty walking, and she presented for planned surgery. PAST MEDICAL HISTORY: Positive for reflux disease, depression, asthma, TMJ, diabetes. PAST OPERATIONS: Two prior lumbar surgeries, C-sections, gallbladder surgery, tonsillectom y, neuroma surgery in the left foot, and cataract surgery. MEDICATIONS 1. Nexium. 2. Flexeril. 3. Bupropion. 4. Fexofenadine. 5. Proventil. 6. Effexor. ALLERGIES 1. MORPHINE. 2. CYMBALTA. 3. EGGS. 4. WHEAT. 5. MOLDS. 6. TREES. PHYSICAL EXAMINATION: Her neurologic exam showed 5/5 strength throughout. She had paresthe tic pain down the ooti-rgqjmax-mfjz-right leg into the buttock region. Her deep tendon refl exes were 1/4. RADIOLOGIC DATA: An MRI of her L-spine showed 6 lumbar vertebrae. She had lumbar spondylol isthesis at the disk, which was the 2nd to last disk level. This would be generally charact erized as an L5-S1 with a lumbarized sacral vertebra. Flexion-extension x-rays of her lumbar spine showed spondylolis thesis at L5-S1, again the 2nd disk from the bottom. HOSPITAL COURSE: The patient was admitted for planned surgery. After obtaining consent, diaz taveras was take n to the operating room and had an L5-S1 mini open TLIF performed. The surgery was completed wit hout complication, and postoperatively she was transferred to the recovery room in stable c ondition. She w as then transferred to the floor. On the floor. She was managed with a INTERN ARCHITECT initially, however it wa s not sign ificantly helping her. The pills did seem to help her better. She has transitioned over to pill form only. She did have some postoperative hypoxemia requiring O2 supplementation for a short course. She did improve wi th therapy . She also improved in terms of her pain management. Unfortunately, she did have some itching reg arding her pain medications and had to be changed and titrated to different narcotics throughout her stay. She was di scharged home on 12/06/2010, off oxygen and mobilizing fairly well. She will need to follow up with me as an outpatient. DIAGNOSES 1. LUMBAR SPONDYLOLISTHESIS, L5-S1, IATROGENIC. 2. HISTORY OF PRIOR MULTILEVEL LUMBAR DECOMPRESSION. 3. L5-S1 RADICULOPATHIES ON THE LEFT. 4. ACID REFLUX DISEASE. 5. DEPRESSION. 6. ASTHMA AND EMPHYSEMA. 7. TEMPOROMANDIBULAR JOINT DYSFUNCTION. 8. HISTORY OF DIABETES. 9. POSTOPERATIVE HYPOXEMIA. OPERATIONS / PROCEDURES 1. Lumbar interbody arthrodesis, L5-S1. 2. Posterolateral lumbar arthrodesis, L5-S1. 3. Posterior spinal instrumentation, L5-S1 segments. 4. Laminectomy and facetectomy, L5-S1, for decompression of spinal nerves. PATIENT INSTRUCTIONS 1. The patient will be light duty. Wear brace as directed. 2. Patient to have walker and o ther durable medical supplies as written. 3. Patient to take pain medications, hydrocodone and Dilaudid as prescribed. 4. Patient will continue her home medications. 5. The patient will follow up with me as an outpatient. DICTATED BY: Fransisco Godwin MD Neurological Surgery JOB #: [id number] EXT JOB #:[id number] <Electronicall y Signed by Fransisco Godwin MD> 12/10/10 0744 documented in this encounter H&P Notes Fransisco Godwin MD - 12/04/2010 6:05 AM PDTDATE: PREOPERATIVE HISTORY AND PHYSICAL DATE OF PROCEDURE: 12/04/2010 CHIEF COMPLAINT: Back pain. PERTINENT HISTORY: The patient is a 55-year-old female who has had 2 previous spinal oper ations. One was performed for spinal stenosis and the 2nd one for recurrent bone spurs. I have been fo llowing her since 08/2010. She has noted to have developed a spondylolisthesis, likely related to the prior 2 surgeries. She is having increased difficulty with walking, significant amount of posterior back and buttock pain down to the hamstrings. Her symptoms continue and she has tried conservative treatments but was unaide d by them. She presents for planned surgery. PAST MEDICAL HISTORY: Positive for acid reflux disease, depression, asthma, TMJ , and a h istory of diabetes, now off medications. PAST OPERATIONS: 2 prior lumbar surgeries 2003 and again in 2005, 3 C-sections , gallblad felix surgery, tonsillectomy, neuroma resection of left foot, and cataract surgery. CURRENT MEDICATIONS 1. Nexium. 2. Flexeril. 3. Bupropion. 4. Fexofenadine. 5. Proventil. 6. Effexor. ALLERGIES 1. MORPHINE. 2. CYMBALTA. 3. EGGS. 4. WHEAT. 5. MOLDS. 6. TREES. FAMILY HISTORY: Positive for alcoholism, tension headache, cancer, heart disease, and cir rhosis of the liver. SOCIAL HISTORY: She was a former half-pack smoker. She has quit smoking. She rarely consu mes alcohol. She denies illicit drug use. REVIEW OF SYSTEMS: A complete review of systems was performed on 08/27/2010 and is review ed in full. There have been no changes to this complete review of systems. PHYSICAL EXAMINATION VITAL SIGNS: Heart rate 70, respiratory rate is 18, blood pressure is 110/64. Weight is 8 0 kg. GENERAL: Ms. Hall is in no acute distress. She has unlabored respirations. She does prescott ve some dyspnea at rest. HEENT: Her head, face, eyes, ears, nose, and throat exam show that she is normocephalic a nd atraumatic. Her eye exam shows normal sclerae without erythema or discharge. Ear exam shows no drainage an d no tenderness. Nasopharynx is clear without erythema or exudate. NECK: Supple. There are no palpable masses anteriorly. CHEST: Coarse with an occasional wheeze. HEART: Regular rate and rhythm without gallops. ABDOMEN: Soft, nontender, and nondistended. Her spinal examination shows cervical tendern ess in the posterior neck region that extends in the intrascapular region. The lumbar region has exqu isite tenderness with a well-healed lumbar incision. EXTREMITY: Examination shows no cyanosis, clubbing, or edema. She does have some postsurg ical changes in the left foot which are well healed. NEUROLOGIC: She is awake and alert. She follows complex commands. Her speech is fluent. S he comprehends speech well and repeats well. She has no apparent deficits with long or short- term memory. Her cranial nerve exam shows cranial nerves 2-12 intact. Her motor exam shows 5/5 strength thr oughout. Sensory examination shows some paresthetic pain down the jvgq-hkpbsxv-axgt-right posterior leg and buttock region down to the mid thigh. Deep tendon reflexes are 1/4 throughout. She has no Delgado's resp onse. Her plantar reflexes are downgoing. RADIOLOGIC DATA: An MRI of her L-spine is reviewed. The patient had 6 lumbar vertebrae ma kelvin numbering of the vertebrae slightly controversial. The patient has a lumbar spondylol isthesis at L5-S1 with a lumbarized S1 vertebrae. This was the second disk level from the bottom. 5. She does have postoperative changes from L4-S2 with posterior laminectomy performed at these levels. Neural foraminal compression is present at the low lumbar levels, however she does have fa irly marked compression at L5-S1. Flexion-extension xrays show obvious worsening of the L5- S1 spondyl olisthesis, which worsens with weightbearing and flexion and reduces somewhat with extension. ASSESSMENT 1. LUMBAR SPONDYLOLISTHESIS IATROGENIC, L5-S1 2. HISTORY OF MULTILEVEL LUMBAR DECOMPRESSION. 3. L5 RADICULOPATHY LEFT LEG, S1 ON THE LEFT. 4. ACID REFLUX DISEASE. 5. DEPRESSION. 6. ASTHMA/EMPHYSEMA. 7. TEMPOROMANDIBULAR JOINT DISEASE. 8. HISTORY OF DIABETES, NOW RESOLVED. PLAN: Mrs. Hall has an iatrogenic spondylolisthesis at L5-S1. I discussed with her the full options preoperatively at 2 prior visits. Because of her progression of symptoms and the o bvious mechanical instability, I do think she is a candidate for spinal surgery. She has quit smoking and th is obviously makes her an even better candidate. I discussed with her that patients generally will improve with l umbar spinal fusion for spondylolisthesis and have less disability then at the 3, 6, 12-month, 18-month , and 24-m [facility] followup periods based on randomized studies. She was interested in surgery and I counseled her on the risk s, benefits, and alternatives to surgery including bleeding, , infection, stroke, paralysis , or other neurologic injury. She was fully aware of the risks and would like to proceed with surgery. She is tentatively schedu led for surgery on 12/04/2010, and hopefully we will be able to assist Ms. Hall with her back pain and callie k issues. DICTATED BY: Fransisco Godwin MD Neurological Surgery JOB #: [id number] EXT JOB #:[id number] <Electronicall y Signed by Fransisco Godwin MD> 12/04/10 1851 documented in this encounter Miscellaneous Notes Op Note - Fransisco Godwin MD - 12/04/2010 6:05 AM PDTDATE: 12/04/2010 PREOPERATIVE DIAGNOSES 1. Lumbar spondylolisthesis, L5-S1. 2. Lumbar radiculopathy L5 bilaterally. 3. Mechanical back pain. 4. History of prior back surgery. POSTOPERATIVE DIAGNOSES 1. Lumbar spondylolisthesis, L5-S1. 2. Lumbar radiculopathy L5 bilaterally. 3. Mechanical back pain. 4. History of prior back surgery. PROCEDURES 1. Posterior lumbar interbody arthrodesis, L5-S1, with placement of PEEK spacer and BMP ma ster graft and local bone morselized autograft. 2. Posterior lateral spinal arthrodesis at L5 and S1 segments with placement of Mastergraf t and morselized local bone autograft. 3. Laminectomy and partial facetectomy, L5-S1, with decompression of the spinal nerves. 4. Posterior spinal instrumentation, L5-S1, with use of bilateral pedicle screws and rods. 5. Reduction of spondylolisthesis at the L5-S1 level. ATTENDING: Fransisco Godwin MD ASSISTANTS: None. ANESTHESIA: General performed by Dr. Chance. ESTIMATED BLOOD LOSS: 100 mL COMPLICATIONS: There were no intraoperative complications. COMMENTS: The patient had 6 lumbar vertebra, making preoperative imaging and postoperative imaging dictation somewhat controversial. The level of L5-S1 was determined on MR imaging preoperatively, and this was not the L4-5 level due to a lumbarization of the sacral verte bra. As such, L4-5 in previous dictations likely misrepresent the appropriate level based on the appropriate cou nting of the vertebra. INTRAOPERATIVE FINDINGS: The L5-S1 level was the level with the spondylolisthesis and a 2nd level from the sacrum proper on intraoperative imaging. The patient did have a spondyl olisthesis at L5-S1, which reduced fully with the placement of hardware and the graft. There was a significant amount of epidural scarring, however, no nerve injury was n oted and no CSF leak was noted during the procedure. OPERATIVE DETAILS: After obtaining consent, the patient was taken the operating room and placed under general anesthesia. She was then positioned in the prone position on the [place] tabl e, and a time-out was performed. All members of the surgical team agreed with the time-out. The patient's back w as then prepped and draped in standard fashion, and a midline brandie was made at the site of her prior incision. The superior aspect of her incision down to approximately 3/4 of the old incision was incised with a # 10 blade k nife. Subcutaneous tissues were dissected with Bovie cautery down to the lumbar fascia. The lumbar fascia was then opened carefully in the midline, taking down tissues laterally. The spinous process of L4 could b e palpated and, as such, it was used as a landmark for the midline and also to allow dissection over bony tissue. B ovie cautery was used to dissect over the lamina of L4 and then a Rankin curette was used to dissect over the face t at L4-5 and at L5-S1. Care was taken not to enter the spinal canal, which had no lamina over it centrally. This was due to her prior back surgery. The L4-5 and L5-S1 facets were exposed fully without damaging the facet caps ules. The L5-S1 facet was then exposed with Bovie cautery, and lamina remaining over the central portion w as also exposed. The bony landmarks were fully exposed at this level on both sides. Because a significant a mount of her pain was in the left leg, the left side was approached for the planned TLIF approach at this le [facility]. High-speed drill was used to drill through the pars segment of L5. This allowed for an en bloc removal of t he facet and the pars of L5. The remaining S1 facet was then removed in a piecemeal fashion, decompressing the s corrie canal centrally and also in the subarticular region. A curette was used to further develop this scar bony plane and then additional facet material was removed, which was causing canal narrowing. Once the canal w as wide open, the foramen was explored at the L5-S1 level. The nerve root could be seen exiting at this leve l and the axilla of the nerve root was explored. The disk was identified in the axilla and hemostasis was obtained with bipolar cautery over the disk and epidural veins. A nerve root retractor was used to medialize the midline structures and the disk was incised with a #15 blade knife. The disk was then removed in a piecemeal fashion with hooks, Kerrison rongeurs, pituitary rongeurs, and also curettes and endplate nisa. Once the end-plates were fully prepared for fusion, the wound was copiously irrigated and then trials were sized at the L5- S1 level. A 10 mm x 22 mm trial was determined to be the appropriate size, and then a final curettage of the endplates was performed. Bone material harvested from the facets and remaining lamina was then used to fill the disk spa ce. Mastergraft was also inserted in this level. A PEEK spacer was prepared using a 10 x 22 mm PEEK capstone s pacer and filled with 0.7 mg of BMP. Local bone autograft was also placed in the spacer. The spacer was the n tamped into place using fluoroscopic guidance, both in the lateral and AP views. At this stage, the demolitionist was removed, and hemostasis obtained with FloSeal. Decortication was then performed over the right side fro m L5-S1. This was performed with a high-speed drill. A posterior lateral arthrodesis was then performed by aminta castro of local bone autograft and master graft over the remaining lamina, the lateral facets, and the origin o f the transverse processes. At this stage, the deep retractors were removed and then suprafascial pockets w ere developed bilaterally with the bovie. Percutaneous fascial screws were then placed, using the follow ing technique. The Yury needles were guided used using AP fluoroscopy at the L5 and S1 levels. The Yury needles were guided into the lateral aspect of the pedicles, aiming medially and anteriorly. They were directed until they reached the medial border of the pedicle and AP fluoroscopy and then lateral fluoroscopy confirmed that the vertebral body had been reached at both levels. K-wires were then inserted down the Yury needles and then sequential dilatatio n of the fascia was performed with the [employer] Sextant 2 dilators. Tapping was performed at each level using a 6.5 mm tap, and then 7.5 x 40 mm Sextant screws were inserted into the pedicles at L5 and S1 bilaterally. Good bony purchase was obtained. The Sextant towers were left connected and then the Sextant towers were conn ected together. The Sextant Arc was then used to pass a 45 mm ravne through a superior stab incision. This raven w as passed through both the screw heads and was confirmed with the raven odd piece checker. The spondy- reduction mechani sm was then used to reduce the spondylolisthesis fully at this level, and then the set screws were inserted bilaterally. The set screws were then broken off appropriately with compression forces applied bilaterally. The Sextant hardware was then fully removed, leaving behind this raven, set screws, and pedicle screws in appropr iate position. AP and lateral fluoroscopy confirmed their placement and reduction of the spondylolisthesis. At t his stage, the wound was once again copiously irrigated and the fascia was closed with 0 Vicryl sutures in inte rrupted fashion. The subcutaneous layer was closed with 0 Vicryl sutures. The subcutaneous layer was closed wit h 3-0 Vicryl sutures. The superior stab incisions were closed with 3-0 Vicryl sutures. LiquiBand was ed for final skin dressing and Steri-Strips were placed on top of this. All counts reported as correct. The patient tolerated the procedure and was transferred to the recovery room in stable condition. DICTATED BY: Fransisco Godwin MD Neurological Surgery JOB #: [id number] EXT JOB #:[id number] <Electronicall y Signed by Fransisco Godwin MD> 12/05/10 0803 documented in this encounter Plan of Treatment Not on filedocumented as of this encounter Procedures + +--------+ + + + | Procedure Name | Priori | Date/Time | Associated Diagnosis | Comments | | | ty | | | | + +--------+ + + + | XR LUMBAR SPINE 2 OR | | 12/04/2010 | | Results for this | | 3 VW | | 6:05 AM | | procedure are in the | | | | PDT | | results section. | + +--------+ + + + documented in this encounter Results XR Lumbar Spine 2 or 3 Vw (12/04/2010 6:05 AM PDT) + + | Specimen | + + | | + + + + + | Narrative | Performed At | + + + | [facility] | [facility] | | [address] | [facility] | | LUMBAR SPINE, LIMITED, | DIAG IMG | | 12/05/2010 CLINICAL HISTORY: POST OP UPRIGHT AND LATERAL | | | L-SPINE. COMPARISON: Preoperative 08/27/2010. FINDINGS: | | | Frontal and lateral views of the lumbar spine. Interval | | | transpedicular screws and vertical rods fusing L4 and 5. Interbody | | | graft is placed on the left aspect of L4-5. There has been some | | | reduction in anterolisthesis of L4 on L5. Exam is otherwise stable. | | | IMPRESSION: 1. STATUS POST FUSION L4-5 WITHOUT EVIDENCE FOR | | | ANY COMPLICATION. Dictated Date/Time: 12/05/2010 09:19 | | | Transcribed Date/Time: 12/05/2010 09:31 Creative Services Manager: | | | <Electronically Signed by Jeff Coates MD> 12/05/10 1031 | | + + + + + | Procedure Note | + + | Lalo, Lucio Conversion - 10/20/2013 2:[address] [facility] | | Diagnostic Imaging Department | | [address][1] | | | | | | | | | | LUMBAR SPINE, LIMITED, 12/05/2010 | | | | CLINICAL HISTORY: POST OP UPRIGHT AND LATERAL L-SPINE. | | | | COMPARISON: Preoperative 08/27/2010. | | | | FINDINGS: Frontal and lateral views of the lumbar spine. Interval | | transpedicular screws and | | vertical rods fusing L4 and 5. Interbody graft is placed on the left aspect of | | L4-5. There has been | | some reduction in anterolisthesis of L4 on L5. Exam is otherwise stable. | | | | IMPRESSION: | | 1. STATUS POST FUSION L4-5 WITHOUT EVIDENCE FOR ANY COMPLICATION. | | | | Dictated Date/Time: 12/05/2010 09:19 | | Transcribed Date/Time: 12/05/2010 09:31 | | Creative Services Manager: | | <Electronically Signed by Jeff Coates MD> 12/05/10 1321 | + + + +---------+ + + | Performing | Address | City/State/Zipcode | Phone Number | | Organization | | | | + +---------+ + + | [place] | | | | | [facility] | | | | + +---------+ + + documented in this encounter Visit Diagnoses Not on filedocumented in this encounter"
--- OUTSIDE RECORDS SUMMARY | ~2020-06-15 | XMS | Encounter Summary ---
Demographics + + + | Address | [address] | | | [place] [address] | + + + | Home Phone | | + + + | Preferred Language | Unknown | + + + | Marital Status | Single | + + + | Mu-Ism Affiliation | Unknown | + + + | Race | Unknown | + + + | Ethnic Group | Unknown | + + + Author + + + | Author | [facility] | | | and [place] | + + + | Organization | [facility] | | | and [place] | + + + | Address | Unknown | + + + | Phone | Unavailable | + + + Care Team Providers + +------+ + | Care Executive Steward Name | Role | Phone | + +------+ + PCP | Unavailable | + +------+ + Encounter Details +--------+ + + + + | Date | Type | Department | Care Team | Description | +--------+ + + + + | 05/26/ | Abstract | [facility] | [facility] | | | 2011 | | Conversion Location | [address] | | | | | [address] | | | | | | [place], [place] | | | | | | [address] | | | | | | [phone] | | | +--------+ + + + [...]
--- OUTSIDE RECORDS SUMMARY | ~2020-06-15 | XMS | Encounter Summary ---
Demographics + + + | Address | [address] | | | [place] [address] | + + + | Home Phone | | + + + | Preferred Language | Unknown | + + + | Marital Status | Single | + + + | Sabianism Affiliation | Unknown | + + + | Race | Unknown | + + + | Ethnic Group | Unknown | + + + Author + + + | Author | [facility] | | | and [place] | + + + | Organization | [facility] | | | and [place] | + + + | Address | Unknown | + + + | Phone | Unavailable | + + + Care Team Providers + +------+ + | Care Specialist Employee Labor Relations Name | Role | Phone | + +------+ + PCP | Unavailable | + +------+ + Encounter Details +--------+ + + + + | Date | Type | Department | Care Team | Description | +--------+ + + + + | 06/29/ | Hospital | [facility] | | | | 2005 | Encounter | MED CTR XRAY [address] | | | | | [address] | | | | | | [place] [address] | | | | | | [phone] | | | +--------+ + + + [...]
--- OUTSIDE RECORDS SUMMARY | ~2020-06-15 | XMS | Clinical Summary ---
Demographics + + + | Address | [address] | | | [place] [address] | + + + | Home Phone [...] Author + + + | Author | [facility] | + + + | Organization | [facility] | + + + | Address | Unknown | + + + | Phone | Unavailable | + + + Support + + +---------+ + | Name | Relationship | Address | Phone | + + +---------+ + | Richard Hall | ECON | Unknown | | + + +---------+ + Care Team Providers + +------+ + | Care Transplant Case Manager Name | Role | Phone | + +------+ + | No Pcp Per Patient | PCP | Unavailable | + +------+ + Source Comments [facility] and [facility] Allergies + + + + + + | Active Allergy | Reactions | Severity | Noted | Comments | | | | | Date | | + + + + + + | Celecoxib | Unknown | High | 03/06/20 | Bleeding | | | | | 14 | | + + + + + + | Codeine Sulfate | Unknown | | | | + + + + + + | Egg | Rash | | 04/23/20 | | | | | | 17 | | + + + + + + | Hydrocodone | Unknown | | | | + + + + + + | Methadone Hcl | Unknown | | | | + + + + + + | Morphine | Unknown | | | | + + + + + + | Oxycodone Hcl | Unknown | | | | + + + + + + | Tramadol Hcl | Unknown | | | | + + + + + + Medications + + + +---------+------+------+-------+ | Medication | Sig | Dispensed | Refills | Star | End | Statu | | | | | | t | Date | s | | | | | | Date | | | + + + +---------+------+------+-------+ | PROAIR HFA 90 | INHALE 2 PUFFS BY | 8.5 | 3 | 08/1 | | Activ | | mcg/actuation | MOUTH EVERY 4 TO 6 | Inhaler | | 0/20 | | e | | inhalation HFA | HOURS IF NEEDED | | | 17 | | | | aerosol inhaler | | | | | | | + + + +---------+------+------+-------+ | naproxen sodium | Take 220 mg by mouth | | 0 | | | Activ | | (ALEVE) 220 mg oral | two times daily. | | | | | e | | tablet | | | | | | | + + + +---------+------+------+-------+ Active Problems + + + | Problem | Noted Date | + + + | GERD (gastroesophageal reflux disease) | 05/03/2017 | + + + | Cholelithiases | 05/03/2017 | + + + | Peptic ulcer disease | 05/03/2017 | + + + | Fibromyalgia | 05/03/2017 | + + + | Chronic fatigue | 05/03/2017 | + + + | Osteoarthritis | 05/03/2017 | + + + | Rheumatoid arthritis | 05/03/2017 | + + + | Migraine | 04/29/2017 | + + + | Asthma | 04/23/2017 | + + + | Lumbar spinal stenosis | 04/23/2017 | + + + | Multiple allergies | 04/23/2017 | + + + | Essential hypertension | 04/23/2017 | + + + | Hypothyroid | 04/23/2017 | + + + | Pure hypercholesterolemia | 04/23/2017 | + + + | Diabetes mellitus | | + + + Family History + + +------+ + | Medical History | Relation | Name | Comments | + + +------+ + | Other | Brother | | MVA | + + +------+ + | Lung Cancer | Brother | | | + + +------+ + | Alcohol/Drug | Father | | | + + +------+ + | Lung Cancer | Father | | | + + +------+ + | Alcohol/Drug | Mother | | | + + +------+ + | Fibromyalgia | Mother | | | + + +------+ + | Alcohol/Drug | Sister | | | + + +------+ + + +------+ + + | Relation | Name | Status | Comments | + +------+ + + | Brother | | | | + +------+ + + | Brother | | Alive | | + +------+ + + | Father | | | | + +------+ + + | Mother | | | | + +------+ + + | Sister | | | | + +------+ + + Social History + + + [...] on file | | + + + Last Filed Vital Signs + + + [...] | | + + + + + Plan of Treatment + + + + + | Health Maintenance | Due Date | Last | Comments | | | | Done | | + + + + + | COLONOSCOPY | | | | | | 3 | | | + + + + + | CT COLONOGRAPHY | | | | | | 3 | | | + + + + + | Colorectal Cancer | | | | | Screening | 3 | | | + + + + + | DEPRESSION SCREEN | | | | | | 3 | | | + + + + + | FECAL IMMUNOCHEMICAL | | | | | TEST (FIT) | 3 | | | + + + + + | FIT DNA (Cologuard) | | | | | | 3 | | | + + + + + | Monofilament foot | | | | | exam | 3 | | | + + + + + | SIGMOIDOSCOPY | | | | | | 3 | | | + + + + + | Cervical cancer | | | | | screening (pap | 3 | | | | smear) | | | | + + + + + | PERTUSSIS | | | | | (TDAP/DTAP) | 4 | | | + + + + + | Substance abuse | | | | | screening | 5 | | | + + + + + | Mammogram | | | | | | 3 | | | + + + + + | Diabetic eye exam | | 04/09/20 | | | | 7 | 16, | | | | | 04/06/20 | | | | | 16 | | + + + + + | Pneumococcal | | | | | vaccination (1 of 1 | 8 | | | | - PPSV23) | | | | + + + + + | Influenza (Flu) | | | | | vaccination (#1) | 0 | | | + + + + + Results Not on filefrom Last 3 Months Insurance + +--------+ +--------+ + +--------+ | Payer | Benefi | Subscriber | Effect | Phone | Address | Type | | | t Plan | ID | ivis | | | | | | / | | Dates | | | | | | Group | | | | | | + +--------+ +--------+ + +--------+ | MEDICARE | MEDICA | [id number] | Effect | [phone] | [address] | [address] | | | RE A & | | ivis | [phone] | [address] | | | B | | for | | [place], [place] | | | | | | all | | [phone] | | | | | | dates | | | | + +--------+ +--------+ + +--------+ | [employer] [facility] [facility] | [employer] | xxx [phone] | Effect | | | Agency | | SERVICE | | | ivis | | | | | | HEALTH | | for | | | | | | | | all | | | | | | SERVIC | | dates | | | | | | E | | | | | | + +--------+ +--------+ + +--------+ | MEDICARE | MEDICA | [id number] | | [phone] | [address] | [address] | | | RE A & | | [phone] | [address] | | | B | | esent | | [place], [place] | | | | | | | | [phone] | | + +--------+ +--------+ + +--------+ | [place]ID [place] | MCAID | [id number] | 04/13/20 | [phone] | [address] | [address] | | | QMM | | 06-Pre | 6 | [id number] | id | | | QMB | | sent | | [place], [place] | | | | | | | | [id number] | | + +--------+ +--------+ + +--------+ | [employer] [facility] | [employer] | [id number] | Effect | | | Agency | | SERVICE | | | ivis | | | | | | HEALTH | | for | | | | | | | | all | | | | | | SERVIC | | dates | | | | | | E | | | | | | + +--------+ +--------+ + +--------+ + +--------+ +--------+ + + | Guarantor Name | Accoun | Relation to | Date | Phone | Billing Address | | | t Type | Patient | of | | | | | | | | | | + +--------+ +--------+ + + | Lorena Hall | Person | Self [birth year] | [address] | | | al/Fam | | 1955 | [phone] | [place] [address] | | | robert | | | 3 (Home) | | + +--------+ +--------+ + + | Lorena Hall | Person | Self [birth year] | | [address] | | | al/Fam | | 1955 | [phone] | [place] [address] | | | robert | | | 3 (Home) | | + +--------+ +--------+ + +
--- OUTSIDE RECORDS SUMMARY | ~2020-06-15 | XMS | Clinical Summary ---
Demographics + + + | Address | [address] | | | [place] [address] | + + + | Home Phone | | + + + | Preferred Language | Unknown | + + + | Marital Status | Single | + + + | Uatsdin Affiliation | Unknown | + + + | Race | Unknown | + + + | Ethnic Group | Unknown | + + + Author + + + | Author | [facility] | | | and [place] | + + + | Organization | [facility] | | | and [place] | + + + | Address | Unknown | + + + | Phone | Unavailable | + + + Care Team Providers + +------+ + | Care Senior Logistics Manager Name | Role | Phone | + +------+ + PCP | Unavailable | + +------+ + Allergies + + + +--------+ + | Active Allergy | Reactions | Severity | Noted | Comments | | | | | Date | | + + + +--------+ + | Celecoxib | | | | | + + + +--------+ + | Codeine Sulfate | | | | | + + + +--------+ + | Hydrocodone | | | | | + + + +--------+ + | Methadone Hcl | | | | | + + + +--------+ + | Morphine | | | | | + + + +--------+ + | Oxycodone Hcl | | | | | + + + +--------+ + | Tramadol Hcl | | | | | + + + +--------+ + Medications Not on file Active Problems + + + | Problem | Noted Date | + + + | HYPERTENSION | | + + + | HYPERCHOLESTEROLEMIA | | + + + | ASTHMA | | + + + | GERD | | + + + | DEPRESSION | | + + + | MIGRAINE HEADACHE | | + + + | DIAB W/OTH MANIFESTS TYPE II/UNS NOT UNCNTRL | | + + + | FIBROMYALGIA | | + + + Social History + +-------+ [...] + + + Last Filed Vital Signs Not on file Plan of Treatment + + +-------+ + | Health Maintenance | Due Date | Last | Comments | | | | Done | | + + +-------+ + | Vaccine: | | | | | Dtap/Tdap/Td (1 - | 2 | | | | Tdap) | | | | + + +-------+ + | Vaccine: Zoster (1 | | | | | of 2) | 3 | | | + + +-------+ + | Breast Cancer | | | | | Screening | 8 | | | + + +-------+ + | Vaccine: | | | | | Pneumococcal 65+ (1 | 8 | | | | of 1 - PPSV23) | | | | + + +-------+ + | Vaccine: Influenza | | | | | (#1) | 0 | | | + + +-------+ + Results Not on filefrom Last 3 Months"
[~2020-06-15 15:00] MED LIST: ALBUTEROL SULF8.5 GM INH; BENADRYL25 MG PO; LIPITOR40 MG PO; NEXIUM20 MG PO; PREDNISONE20 MG PO; RISPERDAL0.5 MG PO; ROBAXIN500 MG PO; TIZANIDINE HCL2 M1 PO
[2020-06-15] MEDS ORDERED: NORCO 5-325 TA1 EACH PO (15:57)
== END 2020-06-15 16:08 | disposition home or self-care (01) ==
LOC: ED 15:00
DX: S80.02XA Contusion of left knee, initial encounter (principal); S80.01XA Contusion of right knee, initial encounter; S20.211A Contusion of right front wall of thorax, initial encounter; W18.09XA Striking against other object with subsequent fall, initial encounter; E11.9 Type 2 diabetes mellitus without complications; Z88.8 Allergy status to other drugs, medicaments and biological substances; Z88.5 Allergy status to narcotic agent
CPT/HCPCS: 71046; 73560; 99283-25

== ENCOUNTER 2021-08-31 14:29 | Emergency (ER) | payer MEDICARE, MEDICAID, OTHER ==
[~2021-08-31] VITALS: Ht 157.5 cm; Wt 68.0 kg
[~2021-08-31 14:29] MED LIST changes: +NORCO 5-325 TA1 EACH PO
== END 2021-08-31 15:06 | disposition home or self-care (01) ==
LOC: ED 14:29
DX: L98.9 Disorder of the skin and subcutaneous tissue, unspecified (principal); E11.9 Type 2 diabetes mellitus without complications; K21.9 Gastro-esophageal reflux disease without esophagitis; E78.5 Hyperlipidemia, unspecified; J44.9 Chronic obstructive pulmonary disease, unspecified; Z88.8 Allergy status to other drugs, medicaments and biological substances; Z88.5 Allergy status to narcotic agent
CPT/HCPCS: 99282

== ENCOUNTER 2021-10-10 17:34 | Emergency (ER) | payer MEDICARE, MEDICAID, OTHER ==
[~2021-10-10] VITALS: Ht 157.5 cm; Wt 68.0 kg
== END 2021-10-10 19:47 | disposition home or self-care (01) ==
LOC: ED 17:34
DX: U07.1 COVID-19 (principal); Z23 Encounter for immunization; E11.9 Type 2 diabetes mellitus without complications; M79.7 Fibromyalgia; K21.9 Gastro-esophageal reflux disease without esophagitis; E78.5 Hyperlipidemia, unspecified; J44.9 Chronic obstructive pulmonary disease, unspecified; Z88.5 Allergy status to narcotic agent; Z88.8 Allergy status to other drugs, medicaments and biological substances
CPT/HCPCS: 99283-25; M0247

== ENCOUNTER 2023-02-05 21:13 | Emergency (ER) | payer OTHER, MEDICARE, MEDICAID ==
[~2023-02-05] VITALS: Ht 157.5 cm; Wt 60.7 kg
[2023-02-05] MEDS ORDERED: TRELEGY ELLIPT1 EAC1 IH (22:00)
[2023-02-06 00:31] VITALS: BP 111/59
== END 2023-02-06 00:33 | disposition home or self-care (01) ==
LOC: ED 21:13
DX: S16.1XXA Strain of muscle, fascia and tendon at neck level, initial encounter (principal); E11.9 Type 2 diabetes mellitus without complications; J44.9 Chronic obstructive pulmonary disease, unspecified; V43.02XA Car driver injured in collision with other type car in nontraffic accident, initial encounter; Y92.481 Parking lot as the place of occurrence of the external cause; Z88.5 Allergy status to narcotic agent; Z88.8 Allergy status to other drugs, medicaments and biological substances
CPT/HCPCS: 70450; 72125; 73560; 99284-25

== ENCOUNTER 2023-07-14 10:26 | Emergency (ER) | payer MEDICARE, OTHER ==
[~2023-07-14] VITALS: Ht 157.5 cm; Wt 60.3 kg
[~2023-07-14 10:26] MED LIST changes: +TRELEGY ELLIPT1 EAC1 IH
[2023-07-14] MEDS ORDERED: VENTOLIN HFA18 GM INH (11:18)
[2023-07-14] MEDS ORDERED: PREDNISONE20 MG PO (11:18)
[2023-07-14 11:28] LABS: INFLUENZA B NAA NEGATIVE (NEGATIVE); RESPIRATORY SYNCYTIAL VIR NAA NEGATIVE (NEGATIVE)
[2023-07-14 11:30] VITALS: BP 123/52
== END 2023-07-14 11:42 | disposition home or self-care (01) ==
LOC: ED 10:26
PROVIDERS: Emergency Medicine
DX: J44.1 Chronic obstructive pulmonary disease with (acute) exacerbation (principal); Z20.822 Contact with and (suspected) exposure to COVID-19; Z28.310 Unvaccinated for COVID-19; Z86.16 Personal history of COVID-19; Z88.5 Allergy status to narcotic agent; Z88.8 Allergy status to other drugs, medicaments and biological substances; Z88.6 Allergy status to analgesic agent; Z79.899 Other long term (current) drug therapy
CPT/HCPCS: 71045; 87502; 94640; 99285-25; C9803; J7512; U0002

== ENCOUNTER 2024-10-04 05:58 | Emergency (ER) | payer MEDICARE, OTHER ==
[~2024-10-04] VITALS: Ht 157.5 cm; Wt 54.9 kg
[~2024-10-04 05:58] MED LIST changes: +VENTOLIN HFA18 GM INH
[2024-10-04] MEDS ORDERED: TRAMADOL HCL 50 MG HOME.PACK PO ONE (07:00)
[2024-10-04 07:13] VITALS: BP 170/59
== END 2024-10-04 07:15 | disposition home or self-care (01) ==
LOC: ED 05:58
DX: S90.122A Contusion of left lesser toe(s) without damage to nail, initial encounter (principal); S90.112A Contusion of left great toe without damage to nail, initial encounter; W22.8XXA Striking against or struck by other objects, initial encounter; E11.9 Type 2 diabetes mellitus without complications; J44.9 Chronic obstructive pulmonary disease, unspecified; E78.5 Hyperlipidemia, unspecified; K21.9 Gastro-esophageal reflux disease without esophagitis; Z88.5 Allergy status to narcotic agent; Z88.8 Allergy status to other drugs, medicaments and biological substances; Z91.012 Allergy to eggs; Z79.899 Other long term (current) drug therapy
CPT/HCPCS: 73630; 99283; A9270